=== PATIENT | male | born 1930 | race Caucasian/White ===

== ENCOUNTER 2018-01-11 10:56 | Inpatient (IN) | payer MEDICARE, OTHER ==
[2018-01-11 12:11] VITALS: BMI 28.0
[2018-01-11] MEDS ORDERED: NITROGLYCERIN SL TABS 0.4 MG TAB SUBLINGUAL ONE (12:28)
[2018-01-11 13:06] LABS: HCT 40.6 % (39.0-53.0); HGB 13.2 gm/dL (13.0-17.5); MCH 29.4 pg (25.0-35.0); MCHC 32.5 g/dL (31.0-37.0); MCV 90.4 fL (80.0-100.0); Mean Platelet Volume 7.8; Platelet Count 187 k/uL (150-450); RBC 4.49 m/uL (4.30-5.90); RDW 13.5 % (11.5-15.5); WBC 6.4 k/uL (3.8-10.6)
[2018-01-11 13:12] LABS: INR 2.6 (<1.2); Prothrombin Time 23.7 sec (9.0-12.0)
[2018-01-11 13:14] LABS: Albumin 3.3 g/dL (3.5-5.0); Calcium 8.8 mg/dL (8.4-10.2); Potassium 4.8 mmol/L (3.5-5.1); Total Bilirubin 0.7 mg/dL (0.2-1.3); Total Protein 5.9 g/dL (6.3-8.2)
[2018-01-11 13:22] LABS: Creatine Kinase 92 U/L (55-170)
[2018-01-11] MEDS: SODIUM CHLORIDE 0.9% 1,000 ML IV SCH (13:29)
[2018-01-11 13:35] LABS: Creatine Kinase MB 2.8 ng/mL (0.0-2.4); Troponin I <0.012 ng/mL (0.000-0.034)
--- NOTE | 2018-01-11 14:23 | P.HPIM ---
History of Present Illness H&P Date: 01/11/18 Chief Complaint: Chest pressure and bradycardia This is a 87-year-old male with a known past medical history of atrial fibrillation anticoagulated with Coumadin, hyperlipidemia, hypertension and dementia. Patient went to see Dr. Walton today for his six-month checkup and it that time reported that he had some right sided chest pressure. He has had this off and on for the last couple weeks. EKG completed in the office had shown patient to be bradycardic with a heart rate in the 40s. He does take atenolol 25 mg daily his last dose was last night. Patient does report feeling more fatigued he has been needing to take naps during the day which she does not usually do. Family at bedside also reporting noting some shortness of breath as well as having falls with no loss of consciousness. Patient denies any lightheadedness or dizziness any loss of consciousness. Denies any fever chills or sweats. Denies any cough. Denies any nausea or vomiting bowel movement changes or urinary symptoms. Patient has been admitted to the sixth floor. Cardiology has been consulted. EKG echo and telemetry ordered. Serial cardiac enzymes also ordered. Review of Systems Please refer to HPI otherwise unremarkable Past Medical History Past Medical History: No Reported History, Atrial Fibrillation, Hearing Disorder / Deafness, Memory Impairment, Osteoarthritis (OA) Additional Past Medical History / Comment(s): Left knee replaced History of Any Multi-Drug Resistant Organisms: None Reported Past Surgical History: Appendectomy, Hernia Repair Past Anesthesia/Blood Transfusion Reactions: No Reported Reaction Past Psychological History: No Psychological Hx Reported Smoking Status: Never smoker - Past Family History Father Additional Family Medical History / Comment(s): Parkinson's Mother Family Medical History: Cancer Additional Family Medical History / Comment(s): Lung Cancer Medications and Allergies Home Medications Medication Instructions Recorded Confirmed Type Aspirin 81 mg PO DAILY 01/11/18 01/11/18 History Atenolol 25 mg PO DAILY 01/11/18 01/11/18 History Calcium Carb-Vit D 500Mg-200Un 1 tab PO DAILY 01/11/18 01/11/18 History [Oscal 500+D] Donepezil HCl [Aricept] 5 mg PO DAILY 01/11/18 01/11/18 History Glucosamine/Chondr Malloy A Sod [Osteo 2 tab PO DAILY 01/11/18 01/11/18 History Bi-Flex Caplet] Memantine [Namenda] 5 mg PO DAILY 01/11/18 01/11/18 History Multivit-Min/FA/Lycopen/Lutein 1 tab PO DAILY 01/11/18 01/11/18 History [Centrum Silver Men Tablet] [place]-3 Fatty Acids/Fish Oil [Fish 1 cap PO DAILY 01/11/18 01/11/18 History Oil 1,000 mg Softgel] Simvastatin [Zocor] 10 mg PO HS 01/11/18 01/11/18 History Warfarin [Coumadin] 5 mg PO SUMOWEFRSA 01/11/18 01/11/18 History Warfarin [Coumadin] 7.5 mg PO TUTH 01/11/18 01/11/18 History Allergies Allergy/AdvReac Type Severity Reaction Status Date / Time No Known Allergies Allergy Verified 01/11/18 12:49 Physical Exam Vitals: Vital Signs Temp Pulse Resp BP Pulse Ox 01/11/18 11:54 96.6 F L 59 L 18 151/83 97 Intake and Output 01/10/18 01/11/18 01/11/18 22:59 06:59 14:59 Other: Weight 86 kg Head normocephalic Neck supple Lungs clear to auscultation bilaterally no wheezing or crackles Heart regular rate and rhythm S1-S2, no rub or gallop Abdomen is soft nontender nondistended positive bowel sounds no hepatosplenomegaly Extremities no edema Neuro alert and orientated to 3 Results CBC & Chem 7: 01/11/18 12:44 01/11/18 12:44 Labs: Abnormal Lab Results - Last 24 Hours (Table) 01/11/18 01/11/18 01/11/18 Range/Units 12:44 12:44 12:44 PT 23.7 H (9.0-12.0) sec INR 2.6 H (<1.2) BUN 24 H (9-20) mg/dL CK-MB (CK-2) 2.8 H (0.0-2.4) ng/mL Total Protein 5.9 L (6.3-8.2) g/dL Albumin 3.3 L (3.5-5.0) g/dL Thrombosis Risk Factor Assmnt - Choose All That Apply Each Risk Factor Represents 3 Points: Age 75 years or older Other congenital or acquired thrombophilia - If yes, enter type in comment: No Thrombosis Risk Factor Assessment Total Risk Factor Score: 3 Thrombosis Risk Factor Assessment Level: Moderate Risk Assessment and Plan Assessment: 1. Chest pain with bradycardia: Cardiology will be consulted. Check serial cardiac enzymes. Check EKG. Check echo. Check chest x-ray and BNP level. Atenolol has been placed on hold. 2. History of atrial fibrillation anticoagulated with Coumadin. Check PT/INR. INR 2.6. Will give Coumadin 5 mg tonight instead of 7.5 which is his home dose 3. Hyperlipidemia continue statin 4. Essential hypertension 5. Dementia continue Aricept and Namenda GI prophylaxis Pepcid and DVT prophylaxis Time with Patient: Greater than 30 (Greater than 60% of the total time spent in counseling and coordination of care.I performed an examination of the patient and discussed their management with the physician It Systems Analyst Consultant. I have reviewed the Physician It Systems Analyst Consultant's notes and agree with the documented findings and plan of care)
[2018-01-11] MEDS ORDERED: LORazepam 2 MG/ML INJ IV PRN ×3 (14:25)
[2018-01-11] MEDS ORDERED: THIAMINE 100 MG/ML 2 ML VIAL IM STA (14:29)
--- NOTE | 2018-01-11 15:09 | P.CRDCN ---
History of Present Illness Consult date: 01/11/18 Requesting physician: Chano Walton Consult reason: chest pain, atrial fibrillation Chief complaint: Chest discomfort History of present illness: This is an 87-year-old gentleman with past medical history significant for chronic persistent atrial fibrillation, anticoagulated with Coumadin, hypertension, hyperlipidemia, mild dementia, who went to see Dr. Walton in the office for his 6 month checkup. He had mentioned to him that he has been having this right-sided chest pressure which has been persistent for approximately 2-3 weeks. EKG was performed in the office which revealed atrial fibrillation with a heart rate in the 40s, patient does take atenolol 25 mg daily, patient also had stated to the [employer] each night. He has done this however for several years. This patient is extremely physically active, he bikes regularly distance, however according to the patient and his daughter who are at bedside he has been slowing down compared to his usual. He does complain of intermittent lightheadedness. Prior to admission or at the time of my examination he denies any dizziness or lightheadedness. Still mentions that he has a pressure in the right side of his chest, he states that it is about a 3 -4 on a pain scale, and again has been persistent for 3 weeks. Even when he rides his bike the pain stays the same, does not worsen in intensity. EKG on arrival here showed atrial fibrillation with a slow ventricular response, heart rate in the 40s to 50s. I pressure 150/80, afebrile, 97% on 2 L of oxygen. White blood cell count is normal, hemoglobin 13.2, platelet count 187. INR 2.6. Sodium 139, potassium 4.8, BUN 24, creatinine 1.0. AST ALT are normal. Troponin 0.012. BNP level 1870. Past Medical History Past Medical History: No Reported History, Atrial Fibrillation, Hearing Disorder / Deafness, Memory Impairment, Osteoarthritis (OA) Additional Past Medical History / Comment(s): Left knee replaced History of Any Multi-Drug Resistant Organisms: None Reported Past Surgical History: Appendectomy, Hernia Repair Past Anesthesia/Blood Transfusion Reactions: No Reported Reaction Past Psychological History: No Psychological Hx Reported Smoking Status: Never smoker - Past Family History Father Additional Family Medical History / Comment(s): Parkinson's Mother Family Medical History: Cancer Additional Family Medical History / Comment(s): Lung Cancer Medications and Allergies Home Medications Medication Instructions Recorded Confirmed Type Aspirin 81 mg PO DAILY 01/11/18 01/11/18 History Atenolol 25 mg PO DAILY 01/11/18 01/11/18 History Calcium Carb-Vit D 500Mg-200Un 1 tab PO DAILY 01/11/18 01/11/18 History [Oscal 500+D] Donepezil HCl [Aricept] 5 mg PO DAILY 01/11/18 01/11/18 History Glucosamine/Chondr Malloy A Sod [Osteo 2 tab PO DAILY 01/11/18 01/11/18 History Bi-Flex Caplet] Memantine [Namenda] 5 mg PO DAILY 01/11/18 01/11/18 History Multivit-Min/FA/Lycopen/Lutein 1 tab PO DAILY 01/11/18 01/11/18 History [Centrum Silver Men Tablet] [place]-3 Fatty Acids/Fish Oil [Fish 1 cap PO DAILY 01/11/18 01/11/18 History Oil 1,000 mg Softgel] Simvastatin [Zocor] 10 mg PO HS 01/11/18 01/11/18 History Warfarin [Coumadin] 5 mg PO SUMOWEFRSA 01/11/18 01/11/18 History Warfarin [Coumadin] 7.5 mg PO TUTH 01/11/18 01/11/18 History Allergies Allergy/AdvReac Type Severity Reaction Status Date / Time No Known Allergies Allergy Verified 01/11/18 12:49 Physical Exam Vitals: Vital Signs Temp Pulse Resp BP Pulse Ox 01/11/18 11:54 96.6 F L 59 L 18 151/83 97 Intake and Output 01/11/18 01/11/18 01/11/18 06:59 14:59 22:59 Other: Weight 86 kg PHYSICAL EXAMINATION: GENERAL: 87-year-old gentleman in no acute distress at the time of my examination HEENT: Head is atraumatic, normocephalic. Pupils equal, round. Sclera anicteric. Conjunctiva are clear. Mucous membranes of the mouth are moist. Neck is supple. There is no elevated jugular venous pressure.] bruit is heard. HEART EXAMINATION: Heart S1-S2 irregularly irregular a systolic murmur is heard. CHEST EXAMINATION: Lungs are clear to auscultation and precussion. No chest wall tenderness is noted on palpation or with deep breathing. ABDOMEN: Soft, nontender. Bowel sounds are heard. No organomegaly noted. EXTREMITIES: 2+ peripheral pulses with no evidence of peripheral edema and no calf tenderness noted. NEUROLOGIC patient is awake, alert and oriented ?-3. . Results 01/11/18 12:44 01/11/18 12:44 Cardiac Enzymes 01/11/18 01/11/18 Range/Units 12:44 12:44 AST 24 (17-59) U/L CK-MB (CK-2) 2.8 H (0.0-2.4) ng/mL Troponin I <0.012 (0.000-0.034) ng/mL Coagulation 01/11/18 Range/Units 12:44 PT 23.7 H (9.0-12.0) sec CBC 01/11/18 Range/Units 12:44 WBC 6.4 (3.8-10.6) k/uL RBC 4.49 (4.30-5.90) m/uL Hgb 13.2 (13.0-17.5) gm/dL Hct 40.6 (39.0-53.0) % Plt Count 187 (150-450) k/uL Comprehensive Metabolic Panel 01/11/18 Range/Units 12:44 Sodium 139 (137-145) mmol/L Potassium 4.8 (3.5-5.1) mmol/L Chloride 107 (98-107) mmol/L Carbon Dioxide 25 (22-30) mmol/L BUN 24 H (9-20) mg/dL Creatinine 1.01 (0.66-1.25) mg/dL Glucose 82 (74-99) mg/dL Calcium 8.8 (8.4-10.2) mg/dL AST 24 (17-59) U/L ALT 37 (21-72) U/L Alkaline Phosphatase 50 (38-126) U/L Total Protein 5.9 L (6.3-8.2) g/dL Albumin 3.3 L (3.5-5.0) g/dL Current Medications Generic Name Dose Route Start Last Admin Trade Name Freq PRN Reason Stop Dose Admin Aspirin 81 mg 01/12/18 09:00 Aspirin PO DAILY [facility] Atorvastatin Calcium 10 mg 01/11/18 21:00 Lipitor PO HS [facility] Calcium Carbonate 1 each 01/12/18 09:00 Oscal 500+D PO DAILY [facility] Donepezil HCl 5 mg 01/12/18 09:00 Aricept PO DAILY [facility] Famotidine 20 mg 01/12/18 09:00 Pepcid PO DAILY [facility] Folic Acid 1 mg 01/12/18 12:00 Folic Acid PO DAILY@1200 [facility] Sodium Chloride 1,000 mls @ 50 mls/hr 01/11/18 12:45 Saline 0.9% IV .Q20H [facility] Lorazepam 1 mg 01/11/18 14:25 Ativan IV Q2HR PRN CIWA 8 or 9 Lorazepam 1 mg 01/11/18 14:25 Ativan IV Q1HR PRN CIWA 10 to 15 Lorazepam 2 mg 01/11/18 14:25 Ativan IV 01/13/18 14:25 Q10M PRN CIWA 16 or higher Memantine 5 mg 01/12/18 09:00 Namenda PO DAILY [facility] Multivitamins 1 each 01/12/18 09:00 Theragran PO DAILY [facility] Osteo Bioflex 1 tab 01/12/18 09:00 PO DAILY [facility] Thiamine HCl 100 mg 01/12/18 12:00 Vitamin B-1 PO DAILY@1200 [facility] Warfarin Sodium 5 mg 01/12/18 18:00 Coumadin PO SUTUWEFRSA [facility] Warfarin Sodium 5 mg 01/11/18 18:00 Coumadin PO 01/11/18 18:01 ONCE@1800 ONE Intake and Output 01/11/18 01/11/18 01/11/18 06:59 14:59 22:59 Other: Weight 86 kg Patient Weight 01/12/18 06:59 Weight 86 kg 01/11/18 12:44 01/11/18 12:44 EKG Interpretations (text) EKG shows atrial fibrillation response Assessment and Plan Plan: Assessment and plan #1 chest discomfort, atypical for acute coronary syndrome. Patient describes the pain as a pressure which has been persistent for 2 to three-week duration. Initial troponin negative. EKG shows a atrial fibrillation with a slow ventricular response. #2 hypertension #3 hyperlipidemia #4 chronic persistent atrial fibrillation, on Coumadin for anticoagulation #5 mild dementia Plan We will obtain an echocardiogram with Doppler study. We will also hold the patient's atenolol, check a free T4 and TSH level. I did have a lengthy discussion with the patient and the family regarding the new her anticoagulants , we will check to see if the patient has coverage and if so we will discontinue the Coumadin and initiate Eliquis 2-1/2 mg one tablet by mouth twice a day. We will continue to monitor the patient, if he remains significantly bradycardic and in spite of the fact that he is off of beta bethany, he may at some point require pacemaker. Further recommendations to follow. DNP note has been reviewed, I agree with a documented findings and plan of care. Patient was seen and examined.
--- NOTE | 2018-01-11 17:43 | XR ---
EXAMINATION TYPE: XR chest 2V DATE OF EXAM: 01/11/2018 COMPARISON: NONE HISTORY: Chest pain TECHNIQUE: Frontal and lateral views of the chest are obtained. FINDINGS: There is coarsening of the pulmonary interstitial markings. There is no gross heart failur e. Thoracic aorta is atheromatous. There is no definite pleural effusion. There are chest leads. IMPRESSION: No overt heart failure. Pulmonary fibrotic changes. No pulmonary consolidation.
[2018-01-11] MEDS ORDERED: WARFARIN 7.5 MG TAB PO SCH (18:00)
[2018-01-11] MEDS ORDERED: WARFARIN 5 MG TAB PO ONE (18:00)
[2018-01-11 18:39] LABS: Creatine Kinase 77 U/L (55-170)
[2018-01-11 18:53] LABS: Creatine Kinase MB 2.1 ng/mL (0.0-2.4); Troponin I <0.012 ng/mL (0.000-0.034)
[2018-01-11] MEDS: ATORVASTATIN 10 MG TAB PO SCH (20:55)
[2018-01-12 02:08] LABS: Creatine Kinase 51 U/L (55-170)
[2018-01-12 02:21] LABS: Creatine Kinase MB 1.5 ng/mL (0.0-2.4); Troponin I <0.012 ng/mL (0.000-0.034)
[2018-01-12 06:03] LABS: Basophils # (A) 0.1 k/uL (0-0.2); Basophils % (A) 1 %; Eosinophils # (A) 0.6 k/uL (0-0.7); Eosinophils % (A) 11 %; HCT 41.3 % (39.0-53.0); HGB 12.9 gm/dL (13.0-17.5); Lymphocytes # (A) 1.5 k/uL (1.0-4.8); Lymphocytes % (A) 27 %; MCHC 31.1 g/dL (31.0-37.0); MCV 93.2 fL (80.0-100.0); Mean Platelet Volume 6.7; Monocytes # (A) 0.3 k/uL (0-1.0); Monocytes % (A) 6 %; Neutrophils # (A) 2.8 k/uL (1.3-7.7); Neutrophils % (A) 52 %; Platelet Count 170 k/uL (150-450); RBC 4.44 m/uL (4.30-5.90); RDW 13.5 % (11.5-15.5); WBC 5.4 k/uL (3.8-10.6)
[2018-01-12 06:15] LABS: Albumin 2.9 g/dL (3.5-5.0); Calcium 8.4 mg/dL (8.4-10.2); Potassium 4.4 mmol/L (3.5-5.1); Total Bilirubin 0.6 mg/dL (0.2-1.3); Total Protein 5.4 g/dL (6.3-8.2)
[2018-01-12 06:23] LABS: INR 2.3 (<1.2); Prothrombin Time 20.8 sec (9.0-12.0)
[2018-01-12] MEDS: SODIUM CHLORIDE 0.9% 1,000 ML IV SCH (07:51)
[2018-01-12] MEDS ORDERED: NON-FORMULARY DRUG (Omega-3 Fatty Acids/Fish Oil [Fish Oil 1,000 Mg Softgel] 1 CAP) PO SCH (09:00)
[2018-01-12] MEDS: MEMANTINE 5 MG TAB PO SCH (10:15)
[2018-01-12] MEDS: CALCIUM CARB-VIT D 500MG-200UN 1 EACH TAB PO SCH (10:15)
[2018-01-12] MEDS: FAMOTIDINE 20 MG TAB PO SCH (10:15)
[2018-01-12] MEDS: MULTIVITAMINS, THERA 1 EACH TAB PO SCH (10:16)
[2018-01-12] MEDS: DONEPEZIL 5 MG TAB PO SCH (10:16)
[2018-01-12] MEDS: ASPIRIN 81 MG PO SCH (10:17)
[2018-01-12] MEDS: osteo bioflex PO SCH (10:18)
--- NOTE | 2018-01-12 10:48 | ECHOF ---
Referral Reason:check EF MEASUREMENTS -------- HEIGHT: 175.3 cm WEIGHT: 85.7 kg BP: 151/83 RVIDd: 3.0 cm (< 3.3) IVSd: 1.0 cm (0.6 - 1.1) LVIDd: 3.8 cm (3.9 - 5.3) LVPWd: 1.0 cm (0.6 - 1.1) IVSs: 1.4 cm LVIDs: 2.3 cm LVPWs: 1.4 cm LA Diam: 4.8 cm (2.7 - 3.8) LAESV Index (A-L): 48.32 ml/m Ao Diam: 3.6 cm (2.0 - 3.7) AV Cusp: 1.6 cm (1.5 - 2.6) LA Diam: 4.2 cm (2.7 - 3.8) EPSS: 0.3 cm MV E Antonio: 0.73 m/s MV DecT: 244 ms MV A Antonio: 0.01 m/s MV E/A Ratio: 129.33 RAP: 5.00 mmHg RVSP: 28.73 mmHg MV EF SLOPE: 161.21 mm/s (70 - 150) MV EXCURSION: 2.25 cm (> 18.000) FINDINGS -------- Atrial fibrillation. This was a technically adequate study. The left ventricular size is normal. Left ventricular wall thickness is normal. Overall left vent ricular systolic function is normal with, an EF between 55 - 60 %. The right ventricle is normal in size and function. LA is severely dilated >40 ml/m2 The right atrium is markedly enlarged. Aortic valve is trileaflet and is mildly thickened. There is no evidence of aortic regurgitation. There is no evidence of aortic stenosis. The mitral valve leaflets are mildly thickened. Mild mitral annular calcification present. Mild-t o-moderate mitral regurgitation is present. Moderate tricuspid regurgitation present. Right ventricular systolic pressure is normal at < 35 mmH g. There is no evidence of pulmonary hypertension. The pulmonic valve was not well visualized. The aortic root size is normal. IVC Not well visulized. There is no pericardial effusion. CONCLUSIONS -------- 1. Atrial fibrillation. 2. This was a technically adequate study. 3. The left ventricular size is normal. 4. Left ventricular wall thickness is normal. 5. Overall left ventricular systolic function is normal with, an EF between 55 - 60 %. 6. LA is severely dilated >40 ml/m2 7. The right atrium is markedly enlarged. 8. Aortic valve is trileaflet and is mildly thickened. 9. The mitral valve leaflets are mildly thickened. 10. Mild mitral annular calcification present. 11. [id number] mitral regurgitation is present. 12. Moderate tricuspid regurgitation present. 13. Right ventricular systolic pressure is normal at < 35 mmHg. 14. There is no evidence of pulmonary hypertension. 15. The pulmonic valve was not well visualized. 16. The aortic root size is normal. 17. IVC Not well visulized. 18. There is no pericardial effusion. SUPERVISOR [employer]: Isaiah Emmanuel RDCS
[2018-01-12] MEDS: THIAMINE 100 MG TAB PO SCH (12:20)
[2018-01-12] MEDS: FOLIC ACID 1 MG TAB PO SCH (12:25)
--- NOTE | 2018-01-12 13:13 | P.PN ---
Subjective Progress Note Date: 01/12/18 This is a 87-year-old male with a known past medical history of atrial fibrillation anticoagulated with Coumadin, hyperlipidemia, hypertension and dementia. Patient went to see Dr. Walton today for his six-month checkup and it that time reported that he had some right sided chest pressure. He has had this off and on for the last couple weeks. EKG completed in the office had shown patient to be bradycardic with a heart rate in the 40s. He does take atenolol 25 mg daily his last dose was last night. Patient does report feeling more fatigued he has been needing to take naps during the day which she does not usually do. Family at bedside also reporting noting some shortness of breath as well as having falls with no loss of consciousness. Patient denies any lightheadedness or dizziness any loss of consciousness. Denies any fever chills or sweats. Denies any cough. Denies any nausea or vomiting bowel movement changes or urinary symptoms. Patient has been admitted to the sixth floor. Cardiology has been consulted. EKG echo and telemetry ordered. Serial cardiac enzymes also ordered. 01/12/2018 patient is still having bradycardia. And is now also having cardiac causes. Heart rate of 38. He is remained off of the beta bethany. I discussed with cardiology. Patient may require pacemaker they will be back through to evaluate patient. Also patient will likely be switched over to Eliquis for anticoagulation instead of the Coumadin. Will await cardiology recommendations. Per nursing staff co-pay was around $5. Echo shows an EF of 55-60% left Atrium severely dilated. TSH is normal troponins were negative 3 sets. Patient denies any fatigue dizziness lightheadedness or loss of consciousness. Denies further episodes of chest pain or shortness of breath. Objective - Vital Signs Vital signs: Vital Signs Temp 97.2 F L 01/12/18 07:50 Pulse 67 01/12/18 07:50 Resp 18 01/12/18 07:50 BP 127/90 01/12/18 07:50 Pulse Ox 95 01/12/18 07:50 Intake & Output 01/11/18 01/12/18 01/12/18 18:59 06:59 18:59 Intake Total 175 400 Balance 175 400 Weight 86 kg 86.8 kg Intake: Intake, IV Titration 175 400 Amount Sodium Chloride 0.9% 1, 175 400 000 ml @ 50 mls/hr IV . Q20H [facility] Rx#:[id number] Oral 0 Other: Voiding Method Toilet # Voids 1 1 - Exam Head normocephalic Neck supple Lungs clear to auscultation bilaterally no wheezing or crackles Heart regular rate and rhythm S1-S2, no rub or gallop Abdomen is soft nontender nondistended positive bowel sounds no hepatosplenomegaly Extremities no edema Neuro alert and orientated to 3 - Labs CBC & Chem 7: 01/12/18 05:26 01/12/18 05:26 Labs: Abnormal Lab Results - Last 24 Hours (Table) 01/11/18 01/11/18 01/11/18 Range/Units 12:44 12:44 12:44 Hgb (13.0-17.5) gm/dL PT 23.7 H (9.0-12.0) sec INR 2.6 H (<1.2) Chloride (98-107) mmol/L BUN 24 H (9-20) mg/dL Total Creatine Kinase (55-170) U/L CK-MB (CK-2) 2.8 H (0.0-2.4) ng/mL Total Protein 5.9 L (6.3-8.2) g/dL Albumin 3.3 L (3.5-5.0) g/dL 01/12/18 01/12/18 01/12/18 Range/Units 01:20 05:26 05:26 Hgb 12.9 L (13.0-17.5) gm/dL PT 20.8 H (9.0-12.0) sec INR 2.3 H (<1.2) Chloride (98-107) mmol/L BUN (9-20) mg/dL Total Creatine Kinase 51 L (55-170) U/L CK-MB (CK-2) (0.0-2.4) ng/mL Total Protein (6.3-8.2) g/dL Albumin (3.5-5.0) g/dL 01/12/18 Range/Units 05:26 Hgb (13.0-17.5) gm/dL PT (9.0-12.0) sec INR (<1.2) Chloride 108 H (98-107) mmol/L BUN 21 H (9-20) mg/dL Total Creatine Kinase (55-170) U/L CK-MB (CK-2) (0.0-2.4) ng/mL Total Protein 5.4 L (6.3-8.2) g/dL Albumin 2.9 L (3.5-5.0) g/dL Assessment and Plan Assessment: 1. Chest pain : Troponins negative 3 sets. Acute coronary syndrome ruled out. Patient seen evaluated by cardiology. 2. Bradycardia: The security monitor showing heart rate 38 with cardiac causes. Atenolol remains on hold. TSH level normal. Case discussed with cardiology patient may require pacemaker. We'll await their further recommendations 3. Hyperlipidemia continue statin 4. Essential hypertension 5. Dementia continue Aricept and Namenda 6. Chronic persistent atrial fibrillation currently anticoagulated with Coumadin. Cardiology working on switching patient over to Eliquis 7. Daily alcohol use: Patient not requiring Ativan. Continue with the CIWA protocol with thiamine, multivitamin and folic acid GI prophylaxis Pepcid and DVT prophylaxis I performed an examination of the patient and discussed their management with the physician Director Of Software Development. I have reviewed the Physician Director Of Software Development's notes and agree with the documented findings and plan of care
--- NOTE | 2018-01-12 14:14 | P.PN ---
Subjective Progress Note Date: 01/12/18 This is an 87-year-old gentleman with past medical history significant for chronic persistent atrial fibrillation, anticoagulated with Coumadin, hypertension, hyperlipidemia, mild dementia, who went to see Dr. Walton in the office for his 6 month checkup. He had mentioned to him that he has been having this right-sided chest pressure which has been persistent for approximately 2-3 weeks. EKG was performed in the office which revealed atrial fibrillation with a heart rate in the 40s, patient does take atenolol 25 mg daily, patient also had stated to the [employer] each night. He has done this however for several years. This patient is extremely physically active, he bikes regularly distance, however according to the patient and his daughter who are at bedside he has been slowing down compared to his usual. He does complain of intermittent lightheadedness. Prior to admission or at the time of my examination he denies any dizziness or lightheadedness. Still mentions that he has a pressure in the right side of his chest, he states that it is about a 3 -4 on a pain scale, and again has been persistent for 3 weeks. Even when he rides his bike the pain stays the same, does not worsen in intensity. EKG on arrival here showed atrial fibrillation with a slow ventricular response, heart rate in the 40s to 50s. I pressure 150/80, afebrile, 97% on 2 L of oxygen. White blood cell count is normal, hemoglobin 13.2, platelet count 187. INR 2.6. Sodium 139, potassium 4.8, BUN 24, creatinine 1.0. AST ALT are normal. Troponin 0.012. BNP level 1870. 01/12/2018 Patient was seen and examined this morning, heart rate in the 70s today overall. Denies any dizziness or lightheadedness. He's been up ambulating in the hallway without any difficulty.blood pressure 127/90, heart rate 70, 95% on 2 L of oxygen.White blood cell count 5.4, hemoglobin 12.9, platelet count 170. INR 2.3. Sodium 137, potassium 4.4, chloride 108, CO2 25, BUN 21, creatinine 1.0.TSH normal. Echocardiogram with Doppler study was performed which revealed an ejection fraction of 55-60%, mild to moderate MR moderate tricuspid regurg. Objective - Vital Signs Vital signs: Vital Signs Temp 97.3 F L 01/12/18 12:00 Pulse 57 L 01/12/18 12:00 Resp 18 01/12/18 12:00 BP 126/69 01/12/18 12:00 Pulse Ox 94 L 01/12/18 12:00 Intake & Output 01/11/18 01/12/18 01/12/18 18:59 06:59 18:59 Intake Total 175 400 Balance 175 400 Weight 86 kg 86.8 kg Intake: Intake, IV Titration 175 400 Amount Sodium Chloride 0.9% 1, 175 400 000 ml @ 50 mls/hr IV . Q20H [facility] Rx#:[id number] Oral 0 Other: Voiding Method Toilet # Voids 1 1 - Exam PHYSICAL EXAMINATION: GENERAL: 87-year-old gentleman in no acute distress at the time of my examination HEENT: Head is atraumatic, normocephalic. Pupils equal, round. Sclera anicteric. Conjunctiva are clear. Mucous membranes of the mouth are moist. Neck is supple. There is no elevated jugular venous pressure.] bruit is heard. HEART EXAMINATION: Heart S1-S2 irregularly irregular a systolic murmur is heard. CHEST EXAMINATION: Lungs are clear to auscultation and precussion. No chest wall tenderness is noted on palpation or with deep breathing. ABDOMEN: Soft, nontender. Bowel sounds are heard. No organomegaly noted. EXTREMITIES: 2+ peripheral pulses with no evidence of peripheral edema and no calf tenderness noted. NEUROLOGIC patient is awake, alert and oriented ?-3. - Labs CBC & Chem 7: 01/12/18 05:26 01/12/18 05:26 Labs: Abnormal Lab Results - Last 24 Hours (Table) 01/12/18 01/12/18 01/12/18 Range/Units 01:20 05:26 05:26 Hgb 12.9 L (13.0-17.5) gm/dL PT 20.8 H (9.0-12.0) sec INR 2.3 H (<1.2) Chloride (98-107) mmol/L BUN (9-20) mg/dL Total Creatine Kinase 51 L (55-170) U/L Total Protein (6.3-8.2) g/dL Albumin (3.5-5.0) g/dL 01/12/18 Range/Units 05:26 Hgb (13.0-17.5) gm/dL PT (9.0-12.0) sec INR (<1.2) Chloride 108 H (98-107) mmol/L BUN 21 H (9-20) mg/dL Total Creatine Kinase (55-170) U/L Total Protein 5.4 L (6.3-8.2) g/dL Albumin 2.9 L (3.5-5.0) g/dL Assessment and Plan Plan: Assessment and plan #1 chest discomfort, atypical for acute coronary syndrome. Patient describes the pain as a pressure which has been persistent for 2 to three-week duration. Initial troponin negative. EKG shows a atrial fibrillation with a slow ventricular response. #2 hypertension #3 hyperlipidemia #4 chronic persistent atrial fibrillation, on Coumadin for anticoagulation #5 mild dementia Plan Echocardiogram with Doppler study was performed which revealed normal left ventricular systolic function. Patient was noted to have a 2-1/2 second pause today while sleeping. From cardiology's perspective, he may be able to be discharged home. Dr. Earnestine Watt will follow him up in the office as an outpatient. We will continue to hold his atenolol. Recommend outpatient stress testing. He has also been approved for Eliquis, patient and family wish to change to Eliquis. We will discontinue the Coumadin and start the Eliquis. DNP note has been reviewed, I agree with a documented findings and plan of care. Patient was seen and examined.
[2018-01-12] MEDS ORDERED: WARFARIN 5 MG TAB PO SCH (18:00)
[2018-01-12] MEDS: ATORVASTATIN 10 MG TAB PO SCH (20:15)
[2018-01-13] MEDS: SODIUM CHLORIDE 0.9% 1,000 ML IV SCH (03:06)
[2018-01-13 03:12] VITALS: RESP 16
[2018-01-13 07:47] LABS: Basophils % (A) 1 %; Eosinophils # (A) 0.5 k/uL (0-0.7); Eosinophils % (A) 9 %; HCT 41.4 % (39.0-53.0); HGB 13.3 gm/dL (13.0-17.5); Lymphocytes # (A) 1.3 k/uL (1.0-4.8); Lymphocytes % (A) 22 %; MCH 29.3 pg (25.0-35.0); MCHC 32.1 g/dL (31.0-37.0); MCV 91.4 fL (80.0-100.0); Mean Platelet Volume 7.1; Monocytes # (A) 0.3 k/uL (0-1.0); Monocytes % (A) 6 %; Neutrophils # (A) 3.6 k/uL (1.3-7.7); Neutrophils % (A) 62 %; Platelet Count 171 k/uL (150-450); RBC 4.53 m/uL (4.30-5.90); RDW 13.3 % (11.5-15.5); WBC 5.8 k/uL (3.8-10.6)
[2018-01-13 07:57] LABS: Prothrombin Time 17.9 sec (9.0-12.0)
[2018-01-13 08:05] LABS: Albumin 3.1 g/dL (3.5-5.0); Calcium 8.6 mg/dL (8.4-10.2); Potassium 4.4 mmol/L (3.5-5.1); Total Bilirubin 0.8 mg/dL (0.2-1.3); Total Protein 5.6 g/dL (6.3-8.2)
[2018-01-13 08:27] VITALS: TEMP 97.4
[2018-01-13] MEDS: DONEPEZIL 5 MG TAB PO SCH (08:36)
[2018-01-13] MEDS: osteo bioflex PO SCH (08:36)
[2018-01-13] MEDS: ASPIRIN 81 MG PO SCH (08:36)
[2018-01-13] MEDS: MEMANTINE 5 MG TAB PO SCH (08:36)
[2018-01-13] MEDS: FAMOTIDINE 20 MG TAB PO SCH (08:36)
[2018-01-13] MEDS: CALCIUM CARB-VIT D 500MG-200UN 1 EACH TAB PO SCH (08:36)
[2018-01-13] MEDS: MULTIVITAMINS, THERA 1 EACH TAB PO SCH (08:37)
[2018-01-13] MEDS ORDERED: APIXABAN 2.5 MG TABLET PO SCH (10:30)
--- NOTE | 2018-01-13 10:53 | P.PN ---
Subjective Progress Note Date: 01/13/18 This is an 87-year-old gentleman with past medical history significant for chronic persistent atrial fibrillation, anticoagulated with Coumadin, hypertension, hyperlipidemia, mild dementia, who went to see Dr. Walton in the office for his 6 month checkup. He had mentioned to him that he has been having this right-sided chest pressure which has been persistent for approximately 2-3 weeks. EKG was performed in the office which revealed atrial fibrillation with a heart rate in the 40s, patient does take atenolol 25 mg daily, patient also had stated to the [employer] each night. He has done this however for several years. This patient is extremely physically active, he bikes regularly distance, however according to the patient and his daughter who are at bedside he has been slowing down compared to his usual. He does complain of intermittent lightheadedness. Prior to admission or at the time of my examination he denies any dizziness or lightheadedness. Still mentions that he has a pressure in the right side of his chest, he states that it is about a 3 -4 on a pain scale, and again has been persistent for 3 weeks. Even when he rides his bike the pain stays the same, does not worsen in intensity. EKG on arrival here showed atrial fibrillation with a slow ventricular response, heart rate in the 40s to 50s. I pressure 150/80, afebrile, 97% on 2 L of oxygen. White blood cell count is normal, hemoglobin 13.2, platelet count 187. INR 2.6. Sodium 139, potassium 4.8, BUN 24, creatinine 1.0. AST ALT are normal. Troponin 0.012. BNP level 1870. 01/12/2018 Patient was seen and examined this morning, heart rate in the 70s today overall. Denies any dizziness or lightheadedness. He's been up ambulating in the hallway without any difficulty.blood pressure 127/90, heart rate 70, 95% on 2 L of oxygen.White blood cell count 5.4, hemoglobin 12.9, platelet count 170. INR 2.3. Sodium 137, potassium 4.4, chloride 108, CO2 25, BUN 21, creatinine 1.0.TSH normal. Echocardiogram with Doppler study was performed which revealed an ejection fraction of 55-60%, mild to moderate MR moderate tricuspid regurg. 01/13/2018 Patient was seen and examined this morning, feels well, he's been up ambulating in the hallway most of the morning. He was noted to have one further positive approximately 2 seconds while sleeping. Heart rate up in the 70s with ambulation. From cardiology's perspective, he may be able to be discharged home today. Objective - Vital Signs Vital signs: Vital Signs Temp 97.4 F L 01/13/18 08:10 Pulse 70 01/13/18 08:10 Resp 16 01/13/18 08:10 BP 162/77 01/13/18 08:10 Pulse Ox 97 01/13/18 08:10 Intake & Output 01/12/18 01/13/18 01/13/18 18:59 06:59 18:59 Intake Total 1580 240 Balance 1580 240 Weight 85.3 kg Intake: Intake, IV Titration 800 Amount Sodium Chloride 0.9% 1, 800 000 ml @ 50 mls/hr IV . Q20H [facility] Rx#:[id number] Oral 780 240 Other: Voiding Method Toilet Toilet Urinal Urinal # Voids 2 1 - Exam PHYSICAL EXAMINATION: GENERAL: 87-year-old gentleman in no acute distress at the time of my examination HEENT: Head is atraumatic, normocephalic. Pupils equal, round. Sclera anicteric. Conjunctiva are clear. Mucous membranes of the mouth are moist. Neck is supple. There is no elevated jugular venous pressure.] bruit is heard. HEART EXAMINATION: Heart S1-S2 irregularly irregular a systolic murmur is heard. CHEST EXAMINATION: Lungs are clear to auscultation and precussion. No chest wall tenderness is noted on palpation or with deep breathing. ABDOMEN: Soft, nontender. Bowel sounds are heard. No organomegaly noted. EXTREMITIES: 2+ peripheral pulses with no evidence of peripheral edema and no calf tenderness noted. NEUROLOGIC patient is awake, alert and oriented ?-3. - Labs CBC & Chem 7: 01/13/18 07:17 01/13/18 07:17 Labs: Abnormal Lab Results - Last 24 Hours (Table) 01/13/18 01/13/18 Range/Units 07:17 07:17 PT 17.9 H (9.0-12.0) sec INR 2.0 H (<1.2) BUN 21 H (9-20) mg/dL Total Protein 5.6 L (6.3-8.2) g/dL Albumin 3.1 L (3.5-5.0) g/dL Assessment and Plan Plan: Assessment and plan #1 chest discomfort, atypical for acute coronary syndrome. Patient describes the pain as a pressure which has been persistent for 2 to three-week duration. Initial troponin negative. EKG shows a atrial fibrillation with a slow ventricular response. #2 hypertension #3 hyperlipidemia #4 chronic persistent atrial fibrillation, on Coumadin for anticoagulation #5 mild dementia Plan Echocardiogram with Doppler study was performed which revealed normal left ventricular systolic function. From cardiology's perspective, patient may be able to be discharged home today. We will make him a follow-up appointment to see Dr. TOMÁS Watt in the office post discharge. DNP note has been reviewed, I agree with a documented findings and plan of care. Patient was seen and examined.
[2018-01-13 11:36] VITALS: BP 146/87; PULSE 62
--- NOTE | 2018-01-13 12:15 | P.DS ---
Providers Date of admission: 01/11/18 11:03 Expected date of discharge: 01/13/18 Attending physician: Chano Walton Consults: 01/11/18 12:21 Consult Physician Routine Consulting Provider: Jose R Watt Consult Reason/Comments: chest pain Do you want consulting provider notified?: Yes Placement Type Exists?: Yes Primary care physician: Chano Walton [facility] Course: Diagnoses on discharge: 1. Chest pain : Troponins negative 3 sets. Acute coronary syndrome ruled out. Patient seen evaluated by cardiology. 2. Bradycardia: The [employer]ian bpm developer showing heart rate 38 with cardiac causes. Atenolol remains on hold. TSH level normal. Case discussed with cardiology patient may require pacemaker. We'll await their further recommendations 3. Hyperlipidemia continue statin 4. Essential hypertension 5. Dementia continue Aricept and Namenda 6. Chronic persistent atrial fibrillation currently anticoagulated with Coumadin. Cardiology working on switching patient over to Eliquis 7. Daily alcohol use: Patient not requiring Ativan. Continue with the CIWA protocol with thiamine, multivitamin and folic acid GI prophylaxis Pepcid and DVT prophylaxis Hospital course: This is a 87-year-old male with a known past medical history of atrial fibrillation anticoagulated with Coumadin, hyperlipidemia, hypertension and dementia. Patient went to see Dr. Walton today for his six-month checkup and it that time reported that he had some right sided chest pressure. He has had this off and on for the last couple weeks. EKG completed in the office had shown patient to be bradycardic with a heart rate in the 40s. He does take atenolol 25 mg daily his last dose was last night. Patient does report feeling more fatigued he has been needing to take naps during the day which she does not usually do. Family at bedside also reporting noting some shortness of breath as well as having falls with no loss of consciousness. Patient denies any lightheadedness or dizziness any loss of consciousness. Denies any fever chills or sweats. Denies any cough. Denies any nausea or vomiting bowel movement changes or urinary symptoms. Patient has been admitted to the sixth floor. Cardiology has been consulted. EKG echo and telemetry ordered. Serial cardiac enzymes also ordered. 01/12/2018 patient is still having bradycardia. And is now also having cardiac causes. Heart rate of 38. He is remained off of the beta bethany. I discussed with cardiology. Patient may require pacemaker they will be back through to evaluate patient. Also patient will likely be switched over to Eliquis for anticoagulation instead of the Coumadin. Will await cardiology recommendations. Per nursing staff co-pay was around $5. Echo shows an EF of 55-60% left Atrium severely dilated. TSH is normal troponins were negative 3 sets. Patient denies any fatigue dizziness lightheadedness or loss of consciousness. Denies further episodes of chest pain or shortness of breath. On 01/13/2018 patient is alert and oriented 3, he denies any new episodes of chest pain, heart rate is 70 no new episodes of bradycardia however patient was having episodes of cardiac causes, he had an episode of 2.3 second pause, and yesterday he had 3 second pause, this was reviewed by cardiology, patient was cleared for discharge, plan is to proceed with stress test as outpatient in the next 1-2 weeks per cardiology. Atenolol was discontinued and patient was started on Norvasc 5 mg by mouth daily he was given a prescription, also Coumadin was discontinued and patient was started on a liquid stool 0.5 mg twice daily, he will be followed in our office within 1 week. Plan - Discharge Summary New Discharge Prescriptions: New amLODIPine [Norvasc] 5 mg PO DAILY tab Apixaban [Eliquis] 2.5 mg PO BID tablet Continue Donepezil HCl [Aricept] 5 mg PO DAILY Simvastatin [Zocor] 10 mg PO HS Aspirin 81 mg PO DAILY Calcium Carb-Vit D 500Mg-200Un [Oscal 500+D] 1 tab PO DAILY Multivit-Min/FA/Lycopen/Lutein [Centrum Silver Men Tablet] 1 tab PO DAILY Glucosamine/Chondr Malloy A Sod [Osteo Bi-Flex Caplet] 2 tab PO DAILY Termo-3 Fatty Acids/Fish Oil [Fish Oil 1,000 mg Softgel] 1 cap PO DAILY Memantine [Namenda] 5 mg PO DAILY Discontinued Warfarin [Coumadin] 5 mg PO SUMOWEFRSA Warfarin [Coumadin] 7.5 mg PO TUTH Atenolol 25 mg PO DAILY Discharge Medication List Aspirin 81 mg PO DAILY 01/11/18 [History] Calcium Carb-Vit D 500Mg-200Un [Oscal 500+D] 1 tab PO DAILY 01/11/18 [History] Donepezil HCl [Aricept] 5 mg PO DAILY 01/11/18 [History] Glucosamine/Chondr Malloy A Sod [Osteo Bi-Flex Caplet] 2 tab PO DAILY 01/11/18 [ History] Memantine [Namenda] 5 mg PO DAILY 01/11/18 [History] Multivit-Min/FA/Lycopen/Lutein [Centrum Silver Men Tablet] 1 tab PO DAILY [History] Termo-3 Fatty Acids/Fish Oil [Fish Oil 1,000 mg Softgel] 1 cap PO DAILY [History] Simvastatin [Zocor] 10 mg PO HS 01/11/18 [History] Apixaban [Eliquis] 2.5 mg PO BID tablet 01/13/18 [Rx] amLODIPine [Norvasc] 5 mg PO DAILY tab 01/13/18 [Rx] Follow up Appointment(s)/Referral(s): Jose R Watt MD [STAFF PHYSICIAN] - 01/25/18 10:15 am () Chano Walton MD [Primary Care Provider] - 01/19/18 11:15 am (Monday) Patient Instructions/Handouts: Angina (DC), A-fib (Atrial Fibrillation) (ED), Cardiac Stress Test (DC) Activity/Diet/Wound Care/Special Instructions: pts copay for Eliquis is $5.50
[2018-01-13] MEDS: FOLIC ACID 1 MG TAB PO SCH (12:21)
[2018-01-13] MEDS: THIAMINE 100 MG TAB PO SCH (12:21)
[2018-01-14] MEDS ORDERED: amLODIPine 5 MG TAB PO SCH (09:00)
== END 2018-01-13 13:25 | disposition home or self-care (01) | DRG 310 ==
LOC: 6SEL 11:03
PROVIDERS: ADMIT Internal Medicine; ATTEND Internal Medicine
DX: R00.1 Bradycardia, unspecified (principal); I48.2 Chronic atrial fibrillation; I08.1 Rheumatic disorders of both mitral and tricuspid valves; F03.90 Unspecified dementia, unspecified severity, without behavioral disturbance, psychotic disturbance, mood disturbance, and anxiety; E78.5 Hyperlipidemia, unspecified; M19.91 Primary osteoarthritis, unspecified site; I10 Essential (primary) hypertension; H91.90 Unspecified hearing loss, unspecified ear; Z79.01 Long term (current) use of anticoagulants; Z79.82 Long term (current) use of aspirin; Z79.899 Other long term (current) drug therapy; Z96.652 Presence of left artificial knee joint; Z90.49 Acquired absence of other specified parts of digestive tract; Z72.89 Other problems related to lifestyle; Z82.0 Family history of epilepsy and other diseases of the nervous system; Z80.1 Family history of malignant neoplasm of trachea, bronchus and lung
CPT/HCPCS: 71046; 80053; 82550; 82553; 83880; 84443; 84484; 85025; 85027; 85610; 93306

== ENCOUNTER 2018-04-21 17:00 | Emergency (ER) | payer MEDICARE, OTHER ==
[2018-04-21 17:06] VITALS: RESP 18
--- NOTE | 2018-04-21 17:38 | XR ---
EXAMINATION TYPE: XR knee complete RT DATE OF EXAM: 04/21/2018 COMPARISON: NONE HISTORY: Knee pain TECHNIQUE: 3 views FINDINGS: There is narrowing of the medial joint space. There is soft tissue swelling anterior to the patella. There is vascular calcification. I see no fracture nor dislocation. IMPRESSION: Osteoarthritis. No fracture.
--- NOTE | 2018-04-21 18:13 | CT ---
EXAMINATION TYPE: CT brain bozena benito DATE OF EXAM: 04/21/2018 COMPARISON: None HISTORY: Fall injury CT DLP: 1367.9 mGycm Automated exposure control for dose reduction was used. TECHNIQUE: CT scan of the head and cervical spine are performed without contrast. FINDINGS: There is cerebral cortical atrophy. There is no mass effect nor midline shift and there i s no sign of intracranial hemorrhage. The calvarium is intact. There is mild hypodensity in the periv entricular white matter. Cervical vertebra have normal alignment. There is degenerative disc space From C4 to C7 with spurring of the endplates. Facet joints are intact. There is mild facet arthropath y. The skull base is intact. There is mucosal thickening left maxillary sinus. IMPRESSION: Mild atrophy and chronic small vessel ischemia. No acute intracranial abnormality. Mild spondylotic changes in the cervical spine. No fracture seen.
--- NOTE | 2018-04-21 18:36 | XR ---
EXAMINATION TYPE: XR femur RT DATE OF EXAM: 04/21/2018 COMPARISON: NONE HISTORY: Leg pain TECHNIQUE: 4 views FINDINGS: There is narrowing of the medial joint space. There is spurring of the medial femoral and t ibial condyles. There is vascular calcification. There is knee joint effusion. There is calcification above the patella that could relate to vascular calcification or synovial chondromatosis. The hip simi int is intact. I see no fracture. IMPRESSION: Knee joint effusion. No fracture seen. 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
--- NOTE | 2018-04-21 19:37 | ED ---
General Adult HPI - General Chief complaint: Extremity Injury, Lower Stated complaint: Fall-knee pain Source: patient, family, RN notes reviewed, old records reviewed Mode of arrival: EMS Limitations: no limitations - History of Present Illness Initial comments: 88-year-old male patient with past medical history including atrial fibrillation , on anticoagulants presents to ED after suffering a knee injury while walking down the stairs today. Patient was on the second last day when his right foot slipped forward. Patient reports that he felt as if his knee "buckled slightly " as a bent forward and he felt pain. Patient caught himself on the guardrail and did not fall to the ground. Patient did hit the side of his head on the wall when he grabbed the guard rail. Patient lowered himself toward ground. Patient denies loss of consciousness. Patient denies headache, changes in vision. Patient denies nausea vomiting diarrhea. Patient denies chest pains, shortness of breath. Patient primary complaint is right knee pain, which had resolved upon presenting to the ER. Systemic: Pt denies fatigue, myalgia, fever/chills, rash. Pt denies weakness, night sweats, weight loss. Neuro: Pt denies headache, visual disturbances, syncope or pre-syncope. HEENT: Pt denies ocular discharge or irritation, otalgia, rhinorrhea, pharyngitis or notable lymphadenopathy. Cardiopulmonary: Pt denies chest pain, SOB, heart palpitations, dyspnea on exertion. Abdominal/GI: Pt denies abdominal pain, n/v/d. : Pt denies dysuria, burning w/ urination, frequency/urgency. Denies new onset urinary or bowel incontinence. MSK: Pt denies myalgia, loss of strength or function in extremities. Neuro: Pt denies new onset weakness, paresthesias. - Related Data Home Medications Medication Instructions Recorded Confirmed Aspirin 81 mg PO DAILY 01/11/18 01/11/18 Calcium Carb-Vit D 500Mg-200Un 1 tab PO DAILY 01/11/18 01/11/18 [Oscal 500+D] Donepezil HCl [Aricept] 5 mg PO DAILY 01/11/18 01/11/18 Glucosamine/Chondr Malloy A Sod [Osteo 2 tab PO DAILY 01/11/18 01/11/18 Bi-Flex Caplet] Memantine [Namenda] 5 mg PO DAILY 01/11/18 01/11/18 Multivit-Min/FA/Lycopen/Lutein 1 tab PO DAILY 01/11/18 01/11/18 [Centrum Silver Men Tablet] Keavy-3 Fatty Acids/Fish Oil [Fish 1 cap PO DAILY 01/11/18 01/11/18 Oil 1,000 mg Softgel] Simvastatin [Zocor] 10 mg PO HS 01/11/18 01/11/18 Previous Rx's Medication Instructions Recorded Apixaban [Eliquis] 2.5 mg PO BID tablet 01/13/18 amLODIPine [Norvasc] 5 mg PO DAILY tab 01/13/18 Allergies Allergy/AdvReac Type Severity Reaction Status Date / Time No Known Allergies Allergy Verified 04/21/18 17:06 Review of Systems ROS Statement: Those systems with pertinent positive or pertinent negative responses have been documented in the HPI. ROS Other: All systems not noted in ROS Statement are negative. Past Medical History Past Medical History: No Reported History, Atrial Fibrillation, Hearing Disorder / Deafness, Memory Impairment, Osteoarthritis (OA) Additional Past Medical History / Comment(s): Left knee replaced History of Any Multi-Drug Resistant Organisms: None Reported Past Surgical History: Appendectomy, Hernia Repair Past Anesthesia/Blood Transfusion Reactions: No Reported Reaction Past Psychological History: No Psychological Hx Reported Smoking Status: Never smoker Past Alcohol Use History: Daily - Past Family History Father Additional Family Medical History / Comment(s): Parkinson's Mother Family Medical History: Cancer Additional Family Medical History / Comment(s): Lung Cancer General Exam - General Exam Comments Initial Comments: Constitutional: NAD, AOX3, Pt has pleasant affect. HEENT: NC/AT, trachea midline, neck supple, no lymphadenopathy. Posterior pharynx non erythematous, without exudates. External ears appear normal, without discharge. Mucous membranes moist. Eyes PERRLA, EOM intact. There is no scleral icterus. No pallor noted. Cardiopulmonary: RRR, no murmurs, rubs or gallops, no JVD noted. Lungs CTAB in anterior and posterior roca. No peripheral edema. Abdominal exam: Abdomen soft and non-distended. Abdomen non-tender to palpation in all 4 quadrants. Bowel sounds active in LLQ. No hepatosplenomegaly. No ecchymosis Neuro: CN II-XII intact. No nuchal rigidity. No facial droop, no focal deficit. No cervical spinal tenderness. MSK: No posterior calf tenderness bilaterally, homans sign negative bilaterally. Posterior tibialis, dostalis pedis and radial pulse +2 bilaterally , pulses equal. Sensation intact in upper and lower extremities. Moderate knee effusion noted on right knee. Patient active range of motion of right lower extremity decreased secondary to pain. Patient has full passive range of motion right lower extremity. Patient is able to bear weight with assistance. Patient neurovascularly intact after immobilizer placement. Small contusion noted on right temporal lobe, non-erythematous. No renteria sign, no raccoon eyes. Limitations: no limitations Course Vital Signs 04/21/18 17:02 Temperature 97.8 F Pulse Rate 77 Respiratory 18 Rate Blood Pressure 134/93 O2 Sat by Pulse 95 Oximetry Medical Decision Making - Medical Decision Making 88-year-old male patient severed a knee injury while walking down stairs. Patient also had a minor head trauma. See HPI for full details. Patient did not fall to ground, did not have any loss of consciousness. Patient denies headache, changes in vision. Physical exam displayed a small contusion on his right temporal lobe. Neuro exam was within normal limits. Patient alert and oriented 3. Moderate right knee effusion noted on physical exam. Patient able to range his knee passively with physical exam. Distal pulses intact and equal. CT of head and neck did not display any acute pathology. Plain film of right knee displayed joint effusion, osteoarthritis. Femur plain films displayed knee joint effusion, osteomyelitis. Patient to be discharged with knee immobilizer, patient be nonweightbearing. Patient to be written a prescription for a wheelchair. Patient to follow up with orthopedic referral as soon as possible. Pt to f/u with PCP in 1-2 days. Pt to return to ED if any new signs or symptoms develop. Case discussed with Dr. Erickson. Disposition Clinical Impression: Fall Disposition: HOME SELF-CARE Condition: Good Instructions: Fall Prevention for Older Adults (ED) Additional Instructions: Patient to adhere to previously discussed treatment plan and will take medication(s) as directed. Patient to follow up with PCP in 1-2 days. Patient to return to ED if symptoms do not improve. Is patient prescribed a controlled substance at d/c from ED?: No Referrals: Chano Walton MD [Primary Care Provider] - 1-2 days Trevin Teague PAC [PHYSICIAN [facility]] - 1-2 days Time of Disposition: 19:41
[2018-04-21 19:58] VITALS: BP 142/93; PULSE 72; TEMP 98
== END 2018-04-21 19:56 | disposition home or self-care (01) ==
LOC: EC 17:00
DX: S89.91XA Unspecified injury of right lower leg, initial encounter (principal); S06.2X0A Diffuse traumatic brain injury without loss of consciousness, initial encounter; M17.11 Unilateral primary osteoarthritis, right knee; M86.9 Osteomyelitis, unspecified; I48.91 Unspecified atrial fibrillation; Z96.652 Presence of left artificial knee joint; Z79.82 Long term (current) use of aspirin; Z79.899 Other long term (current) drug therapy; W10.9XXA Fall (on) (from) unspecified stairs and steps, initial encounter; Y93.01 Activity, walking, marching and hiking; Y92.009 Unspecified place in unspecified non-institutional (private) residence as the place of occurrence of the external cause
CPT/HCPCS: 99284; 73552; 73562; 72125; 70450; L1830

== ENCOUNTER 2018-05-16 11:11 | Day surgery (SDC) | payer MEDICARE, OTHER ==
[~2018-05-16 11:11] MED LIST: ACETAMINOPHEN TAB 500 MG TAB PO ONE; HYDROmorphone 0.5 MG/0.5 ML SYRINGE IVP PRN; LACTATED RINGERS 1,000 ML IV SCH; LIDOCAINE 1% 20 ML VIAL (10MG/ML) FOR IV START INTRADERMA PRN; ONDANSETRON 4 MG/2 ML VIAL IVP ONE; Pre Op ABX Message 1 EACH MISC MISCELLANE ONE; TRANEXAMIC ACID 1,000 MG in SODIUM CHLORIDE 0.9% 50 ML IVPB ONE
[2018-05-16] MEDS ORDERED: LIDOCAINE 1% 20 ML VIAL (10MG/ML) FOR IV START INTRADERMA ONE (12:03)
[2018-05-16] MEDS ORDERED: PROPOFOL 10 MG/ML 20 ML VIAL IV ONE (14:13)
[2018-05-16] MEDS ORDERED: SUCCINYLCHOLINE CHLORIDE 100 MG/5 ML SYR IV ONE (14:13)
[2018-05-16] MEDS ORDERED: LIDOCAINE 1% INJ 10MG/ML (20 ML MDV) ONE (14:13)
[2018-05-16] MEDS ORDERED: fentaNYL (PF) 50 MCG/ML 2 ML AMP ONE (14:13)
[2018-05-16] MEDS ORDERED: MIDAZOLAM 2 MG/2 ML VIAL ONE (14:13)
[2018-05-16] MEDS ORDERED: GLYCOPYRROLATE 0.2 MG/ML 2 ML VIAL ONE (14:13)
[2018-05-16] MEDS ORDERED: NEOSTIGMINE 1 MG/ML 10 ML VIAL ONE (14:13)
[2018-05-16] MEDS ORDERED: BUPIVACAINE (PF) 0.5% 30 ML VIAL ONE (14:13)
[2018-05-16] MEDS ORDERED: ROCURONIUM BROMIDE 10 MG/ML 10 ML VIAL IV ONE (14:13)
[2018-05-16] MEDS ORDERED: ceFAZolin 1,000 MG/50 ML BAG (PMX) IVPB ONE (14:20)
[2018-05-16] MEDS ORDERED: ceFAZolin 1,000 MG in SODIUM CHLORIDE 0.9% 1,000 ML IRRIGATION ONE (14:56)
[2018-05-16 16:28] VITALS: TEMP 98
[2018-05-16] MEDS ORDERED: LACTATED RINGERS 1,000 ML IV ONE (16:54)
[2018-05-16] MEDS ORDERED: ROPIVACAINE 5 MG/ML 30 ML VIAL MISCELLANE ONE (17:00)
[2018-05-16] MEDS ORDERED: ROPIVACAINE 1,100 MG, SODIUM CHLORIDE 0.9% 500 ML 330 ML MISCELLANE PRN ×2 (17:47)
--- NOTE | 2018-05-16 17:50 | P.ONQ ---
Anesthesiology Proc Note - PNB - Peripheral Nerve Block Performed Right Adductor Canal Infusion Time Out Performed: Yes Procedure Start Time: 16:58 Indication: Acute Post-Operative Pain, Analgesia Specifically requested for management of pain by DrHiral: Angelo Bobo Sedation Type: Sedate with meaningful contact maintained Preparation: Sterile Prep Position: Supine Catheter Depth at Skin (cm): 7 Catheter: Indwelling Needle Types: Other (see comment) (Pajunk) Needle Size: 100mm (4") Needle Gauge: 18 Technique: Ultrasound Injectate: 0.5% Ropivacaine (see comment for volume) (20cc) Blood Aspirated: No Pain Paresthesia on Injection Noted: No Resistance on Injection: Normal Events: Uneventful and Well Tolerated
[2018-05-16 18:39] VITALS: RESP 18
[2018-05-16] MEDS ORDERED: HYDROcodone/APAP 5-325MG 1 EACH TAB PO ONE (19:02)
[2018-05-16 19:12] VITALS: BP 130/86; PULSE 74
--- NOTE | 2018-05-30 12:34 | P.OP ---
Date of Procedure: 05/16/18 Procedure(s) Performed: PREOPERATIVE DIAGNOSES: 1. Right quad tendon rupture and disruption of the extensor mechanism, right knee POSTOPERATIVE DIAGNOSES: 1. Right quad tendon rupture and disruption of the extensor mechanism, right knee PROCEDURES PERFORMED: 1. Right knee open quad tendon repair, primary ANESTHESIA: General ESTIMATED BLOOD LOSS: Less than 25 cc TOURNIQUET: None EXPERIMENTAL ASSEMBLER: Carmen Fong PA-C (assistance with: Patient positioning, retraction, exposure, hemostasis, fixation, closure, dressing) COMPLICATIONS: None DISPOSITION: To postanesthesia care unit INDICATIONS: Mr. Nice is an 88-year-old male who ruptured his quad tendon during a near fall in which he forcibly flexed his knee. He evidently had very poor pre-injury motion with quad contracture even though he was reportedly quite active. He presents to the operating room today for quad tendon repair. I have explained the details of this surgery thoroughly and also explained the potential risks and complications. These are inclusive of, but not limited to: bleeding, infection, scarring, discomfort, blood vessel and nerve damage, stiffness, weakness, need for further surgery, failure to relieve symptoms, persistence or worsening of problems, , and other risks. Patient is aware of these risks and agrees to proceed with surgery. The consent form has been signed. PROCEDURE: Appropriate consent was obtained from the patient, who was then taken to the operating room and placed in the supine position. General anesthesia was initiated. Positioning was performed with care to make sure that all pressure points were adequately padded. Bear-hugger was used along with leg sequential compression device(s). Prepping and draping was completed in the usual aseptic fashion using Chloraprep. Timeout was called, confirming patient identity, side, procedure, and administration of antibiotics. The patient received intravenous antibiotics prior to incision. Incision was created over the anterior aspect of the knee directly over the prepatellar bursa and quad tendon. Incision was carried carefully down through skin into subcu tissues and to the peritenon. Full thickness subcutaneous flaps were created for exposure of the extensor mechanism and the ruptured quad tendon. The quad tendon had torn from the superior pole of patella in ragged fashion. However, evaluation of the remaining distal stump of the quad tendon showed tissue adequate for a modified Krakw type repair. Minimal debridement of the ragged ends of the quad tendon was performed to not overly shorten the tendon. A modified Krakw-type stitch was then placed using #5 FiberWire suture through the medial and lateral sides of the quad tendon. Tension was held on the sutures after every throw to make sure that the sutures would not give and slipped after repair to the patella. Next, a 3 mm hole was drilled from proximal to distal through the superior aspect of the patella. Care was taken to make sure that the plane of the drill did not dive posteriorly. The needle emerged at the patellar tendon insertion and a second hole was placed parallel to the first in similar fashion. The #5 FiberWire sutures were then brought through the patella using a Guzu suture passer. The patella was carefully held in place by an senior administrative assistant and quad tendon was noted to be well reduced into the superior pole of the patella with the knee in full extension. The sutures were then tied down securely over the inferior aspect of the patella and the knot was buried within the patellar tendon. Once tension was released, it was noted that the quad tendon adequately restored the continuity of the extensor mechanism centrally. On both the medial and lateral sides of the extensor retinaculum, supplemental #2 FiberWire sutures were placed as well as 0 Vicryl sutures to further reinforce the repair. The knee was then gently bent to approximately 45 to assess the strength of the repair. The repair appeared robust without evidence of suture slippage or lengthening of the quad tendon. Further testing past 45 was not performed in order to not over stress the repair. Thorough irrigation of the wound was performed using normal saline. Hemostasis was obtained throughout the case using electrocautery. Sterile dressing was then applied using ABDs pads, Hernandez roll and an Eamon wrap and a secure knee immobilizer splint was applied. The patient tolerated the procedure well and no complications and minimal blood loss. He was subsequently transferred to recovery room in stable condition. Sponge and needle counts are correct.
== END 2018-05-16 20:18 | disposition home or self-care (01) ==
LOC: OR 11:11
PROVIDERS: ATTEND Orthopaedic Surgery
DX: S76.111A Strain of right quadriceps muscle, fascia and tendon, initial encounter (principal); W10.9XXA Fall (on) (from) unspecified stairs and steps, initial encounter; X50.9XXA Other and unspecified overexertion or strenuous movements or postures, initial encounter; M17.11 Unilateral primary osteoarthritis, right knee; E78.5 Hyperlipidemia, unspecified; R00.2 Palpitations; I10 Essential (primary) hypertension; H91.90 Unspecified hearing loss, unspecified ear; Z72.0 Tobacco use; E78.00 Pure hypercholesterolemia, unspecified; I49.5 Sick sinus syndrome; I48.2 Chronic atrial fibrillation; I65.29 Occlusion and stenosis of unspecified carotid artery; F03.90 Unspecified dementia, unspecified severity, without behavioral disturbance, psychotic disturbance, mood disturbance, and anxiety; Z79.82 Long term (current) use of aspirin; Z79.899 Other long term (current) drug therapy; Z79.01 Long term (current) use of anticoagulants
CPT/HCPCS: 27385; C1772; J2250; J2710; J2405; J0690 ×2; J2001; J3010; J2795; J0330; J2704

== ENCOUNTER → 2020-02-20 | Outpatient (CLI) | payer MEDICARE ==
--- NOTE | 2020-02-20 12:20 | BD ---
EXAMINATION TYPE: Axial Bone Density DATE OF EXAM: 02/20/2020 COMPARISON: NONE CLINICAL HISTORY: Known osteoporosis. Height: 67 Weight: 206.6 FRAX RISK QUESTIONS: Alcohol (3 or more units per day): no Family History (Parent hip fracture): no Glucocorticoids (More than 3mos): no (Ex: prednisone, prednisolone, methylprednisolone, dexamethasone, and hydrocortisone). History of Fracture in Adulthood: no Secondary Osteoporosis: 1. Type 1 Diabetes: no 2. Hyperthyroidism: no 3. Menopause before 45: n/a 4. Malnutrition: no 5. Chronic liver disease: no Rheumatoid Arthritis: no Current Tobacco Use: no RISK FACTORS HISTORY OF: Family History of Osteoporosis: no Active: yes Diet low in dairy products/other sources of calcium: no Lost more than 2 inches in height since high school: yes MEDICATIONS: Additional History: EXAM MEASUREMENTS: Bone mineral densitometry was performed using the [employer] System. Bone mineral density as measured about the Lumbar spine is: ----- L1-L4(G/cm2): 1.140 T Score Values are as follows: ----- L2: -1.3 ----- L3: 0.1 ----- L4: 0.7 ----- L1-L4: -0.3 Bone mineral density : BASELINE Bone mineral density about the R hip (g/cm2): 0.971 Bone mineral density about the L hip (g/cm2): 1.029 T Score values are as follows: -----R Neck: -0.5 -----L Neck: -0.1 -----R Total: 0.3 -----L Total: 0.9 Bone mineral density : BASELINE IMPRESSION: Osteopenia (T Score between -2.5 and -1) at 2 consecutive levels in the upper lumbar spine. There is slightly increased risk of fracture and the patient may be considered for treatment. Re-Screen 2-5 years. NOTE: T-SCORE=SD OF THE YOUNG ADULT MEAN.
== END | disposition home or self-care (01) ==
LOC: RADBDWWP 09:57
PROVIDERS: ATTEND Internal Medicine
DX: M85.88 Other specified disorders of bone density and structure, other site (principal)
CPT/HCPCS: 77080

== ENCOUNTER 2021-03-23 19:06 | Observation (INO) | payer MEDICARE ==
[2021-03-23] MEDS ORDERED: SODIUM CHLORIDE 0.9% 500 ML 500 ML IV STA (20:25)
[2021-03-23 20:44] LABS: Basophils % (A) 1 %; Eosinophils # (A) 0.6 k/uL (0-0.7); Eosinophils % (A) 8 %; HCT 44.2 % (39.0-53.0); HGB 14.7 gm/dL (13.0-17.5); Lymphocytes # (A) 1.6 k/uL (1.0-4.8); Lymphocytes % (A) 20 %; MCHC 33.2 g/dL (31.0-37.0); MCV 90.2 fL (80.0-100.0); Mean Platelet Volume 7.6; Monocytes # (A) 0.4 k/uL (0-1.0); Monocytes % (A) 6 %; Neutrophils # (A) 4.9 k/uL (1.3-7.7); Neutrophils % (A) 63 %; Platelet Count 215 k/uL (150-450); RBC 4.89 m/uL (4.30-5.90); WBC 7.8 k/uL (3.8-10.6)
[2021-03-23 20:59] LABS: Albumin 3.5 g/dL (3.5-5.0); Magnesium 1.8 mg/dL (1.6-2.3); Total Bilirubin 0.6 mg/dL (0.2-1.3); Total Protein 6.3 g/dL (6.3-8.2)
[2021-03-23 21:08] LABS: Potassium 4.1 mmol/L (3.5-5.1)
--- NOTE | 2021-03-23 21:10 | CT ---
EXAMINATION TYPE: CT brain wo con DATE OF EXAM: 03/23/2021 COMPARISON: 04/21/2018 HISTORY: snycope CT DLP: 1178.4 mGycm Automated exposure control for dose reduction was used. There is cerebral cortical atrophy. There is patchy hypodensity in the periventricular white matter. There is no mass effect nor midline shift. There is no sign of intracranial hemorrhage. Calvarium is intact. There is normal aeration of the mastoid sinuses. IMPRESSION: Cerebral atrophy and chronic small vessel ischemia. No acute intracranial abnormality. No adverse rhiannon nge compared to old exam. There is clearing of the maxillary left side sinusitis compared to old exam .
[2021-03-23 21:11] LABS: Partial Thromboplastin Time 21.7 sec (22.0-30.0); Prothrombin Time 10.8 sec (9.0-12.0)
--- NOTE | 2021-03-23 21:13 | XR ---
EXAMINATION TYPE: XR chest 2V DATE OF EXAM: 03/23/2021 COMPARISON: 01/11/2018 HISTORY: Syncope TECHNIQUE: FINDINGS: There is no heart failure nor confluent pneumonic infiltrate. There is some mild atelectasi s left lung base. There is coarsening of the interstitial markings. There are chest leads. Thoracic a preston is atheromatous. IMPRESSION: There is some atelectasis and linear infiltrate left lung base. This appears increased co mpared to old exam. No heart failure. Mild pulmonary fibrosis.
[2021-03-23 22:47] LABS: Appearance,Urine Clear (Clear); Bilirubin,Urine Negative (Negative); Blood,Urine Negative (Negative); Color,Urine Yellow; Glucose,Urine (UA) Negative (Negative); Ketones,Urine Negative (Negative); Leukocyte Esterase,Urine Negative (Negative); Nitrite,Urine Negative (Negative); Protein,Urine Negative (Negative); Specific Gravity,Urine 1.015 (1.001-1.035); Urobilinogen,Urine <2.0 mg/dL (<2.0)
--- NOTE | 2021-03-23 23:37 | ED ---
Dizziness HPI - General Chief Complaint: Syncope Stated Complaint: Syncope Time Seen by Provider: 03/23/21 19:20 Source: patient, EMS Mode of arrival: EMS Limitations: no limitations - History of Present Illness Initial Comments: 89-year-old male patient presents to the emergency department today for evaluation after having a syncopal episode at home. Daughter states he was sitting at the table having a [place] when he suddenly stood up and clutched his abdomen. States she made him sit back down and then he proceeded to have a syncopal event which lasted just a few seconds. This during the episode he did have some snoring slow respirations. States that he came to shortly after and he stated he felt fine and did not remember the episode. They called an ambulance and he was brought in for further evaluation. Patient is currently reporting feeling fine. Does not recall the episode however he does have history of dementia. Denies any current headache, blurred vision, double vision. Denies any numbness, tingling, weakness to the extremities. Denies any current abdominal pain. Denies nausea or vomiting. Denies any recent diarrhea. They deny any fever or chills or concerning for COVID-19. Patient did have a fall outside last Monday where he fell flat on his back. States he did have some right ankle pain and swelling with this. He does take Eliquis for history of A. fib. - Related Data Home Medications Medication Instructions Recorded Confirmed Aspirin 81 mg PO DAILY 01/11/18 03/23/21 Calcium Carb-Vit D 500Mg-5Mcg 1 tab PO DAILY 01/11/18 03/23/21 [Oscal 500+D 5 Mcg (200 Iu)] Donepezil HCl [Aricept] 5 mg PO HS 01/11/18 03/23/21 Glucosamine/Chondr Malloy A Sod [Osteo 2 tab PO DAILY 01/11/18 03/23/21 Bi-Flex Caplet] Multivit-Min/FA/Lycopen/Lutein 1 tab PO DAILY 01/11/18 03/23/21 [Centrum Silver Men Tablet] [place]-3 Fatty Acids/Fish Oil [Fish 2 cap PO DAILY 01/11/18 03/23/21 Oil 1,000 mg Softgel] Simvastatin [Zocor] 10 mg PO HS 01/11/18 03/23/21 amLODIPine [Norvasc] 5 mg PO HS 05/15/18 03/23/21 Memantine [Namenda] 10 mg PO BID 03/23/21 03/23/21 Vitamin E 400 unit PO DAILY 03/23/21 03/23/21 Previous Rx's Medication Instructions Recorded Apixaban [Eliquis] 2.5 mg PO BID tablet 01/13/18 Allergies Allergy/AdvReac Type Severity Reaction Status Date / Time No Known Allergies Allergy Verified 03/23/21 22:25 Review of Systems ROS Statement: Those systems with pertinent positive or pertinent negative responses have been documented in the HPI. ROS Other: All systems not noted in ROS Statement are negative. Past Medical History Past Medical History: Atrial Fibrillation, Hearing Disorder / Deafness, Memory Impairment, Osteoarthritis (OA) Additional Past Medical History / Comment(s): Left knee replaced History of Any Multi-Drug Resistant Organisms: None Reported Past Surgical History: Appendectomy, Hernia Repair Past Anesthesia/Blood Transfusion Reactions: No Reported Reaction Past Psychological History: No Psychological Hx Reported Smoking Status: Never smoker Past Alcohol Use History: Daily Past Drug Use History: None Reported - Past Family History Father Additional Family Medical History / Comment(s): Parkinson's Mother Family Medical History: Cancer Additional Family Medical History / Comment(s): Lung Cancer General Exam Limitations: no limitations General appearance: alert, in no apparent distress, other (This is a well- developed, well-nourished adult male patient in no acute distress.) Head exam: Present: atraumatic, normocephalic, normal inspection Eye exam: Present: normal appearance, PERRL, EOMI. Absent: scleral icterus, conjunctival injection, nystagmus, periorbital swelling ENT exam: Present: normal exam, normal oropharynx, mucous membranes moist Respiratory exam: Present: normal lung sounds bilaterally. Absent: respiratory distress, wheezes, rales, rhonchi, stridor Cardiovascular Exam: Present: regular rate, normal rhythm, normal heart sounds. Absent: systolic murmur, diastolic murmur, rubs, gallop, clicks GI/Abdominal exam: Present: soft, normal bowel sounds. Absent: distended, tenderness, guarding, rebound, rigid Neurological exam: Present: alert, CN II-XII intact. Absent: oriented X3 (Oriented 2) Psychiatric exam: Present: normal affect, normal mood Skin exam: Present: warm, dry, intact, normal color. Absent: rash Course Vital Signs 03/23/21 03/23/21 03/23/21 19:52 21:00 22:25 Temperature 97.8 F Pulse Rate 74 71 79 Respiratory 20 20 20 Rate Blood Pressure 98/64 123/90 143/90 O2 Sat by Pulse 94 L 94 L 96 Oximetry 03/24/21 00:06 Temperature Pulse Rate 75 Respiratory 20 Rate Blood Pressure 137/77 O2 Sat by Pulse 94 L Oximetry Medical Decision Making - Medical Decision Making 89-year-old male patient presents to the emergency department today for evaluation after having a syncopal episode. Physical examination was unremarkable. He is neurologically intact with no focal deficits. Labs reviewed and are unremarkable. Chest x-ray negative. CT brain negative. My attending Dr. Coker was in to perform bedside FAST exam. There is no evidence for any abdominal bleeding. EKG was unremarkable. He'll be admitted to the hospital for observation. Patient family are agreeable with this plan. Case discussed with my attending Dr. Coker. - Lab Data Result diagrams: 03/23/21 20:27 03/23/21 20:27 Lab Results 03/23/21 03/23/21 03/23/21 Range/Units 20:27 20:27 20:27 WBC 7.8 (3.8-10.6) k/uL RBC 4.89 (4.30-5.90) m/uL Hgb 14.7 (13.0-17.5) gm/dL Hct 44.2 (39.0-53.0) % MCV 90.2 (80.0-100.0) fL MCH 30.0 (25.0-35.0) pg MCHC 33.2 (31.0-37.0) g/dL RDW 13.0 (11.5-15.5) % Plt Count 215 (150-450) k/uL MPV 7.6 Neutrophils % 63 % Lymphocytes % 20 % Monocytes % 6 % Eosinophils % 8 % Basophils % 1 % Neutrophils # 4.9 (1.3-7.7) k/uL Lymphocytes # 1.6 (1.0-4.8) k/uL Monocytes # 0.4 (0-1.0) k/uL Eosinophils # 0.6 (0-0.7) k/uL Basophils # 0.0 (0-0.2) k/uL PT 10.8 (9.0-12.0) sec INR 1.0 (<1.2) APTT 21.7 L (22.0-30.0) sec D-Dimer 0.79 H (<0.60) mg/L FEU Sodium 136 L (137-145) mmol/L Potassium 4.1 (3.5-5.1) mmol/L Chloride 105 (98-107) mmol/L Carbon Dioxide 22 (22-30) mmol/L Anion Gap 9 mmol/L BUN 17 (9-20) mg/dL Creatinine 0.95 (0.66-1.25) mg/dL Est GFR (CKD-EPI)AfAm 82 (>60 ml/min/1.73 sqM) Est GFR (CKD-EPI)NonAf 71 (>60 ml/min/1.73 sqM) Glucose 122 H (74-99) mg/dL Calcium 9.0 (8.4-10.2) mg/dL Magnesium 1.8 (1.6-2.3) mg/dL Total Bilirubin 0.6 (0.2-1.3) mg/dL AST 36 (17-59) U/L ALT 19 (4-49) U/L Alkaline Phosphatase 60 (38-126) U/L Troponin I (0.000-0.034) ng/mL Total Protein 6.3 (6.3-8.2) g/dL Albumin 3.5 (3.5-5.0) g/dL Urine Color Urine Appearance (Clear) Urine pH (5.0-8.0) Ur Specific [place] (1.001-1.035) Urine Protein (Negative) Urine Glucose (UA) (Negative) Urine Ketones (Negative) Urine Blood (Negative) Urine Nitrite (Negative) Urine Bilirubin (Negative) Urine Urobilinogen (<2.0) mg/dL Ur Leukocyte Esterase (Negative) 03/23/21 03/23/21 Range/Units 20:27 22:25 WBC (3.8-10.6) k/uL RBC (4.30-5.90) m/uL Hgb (13.0-17.5) gm/dL Hct (39.0-53.0) % MCV (80.0-100.0) fL MCH (25.0-35.0) pg MCHC (31.0-37.0) g/dL RDW (11.5-15.5) % Plt Count (150-450) k/uL MPV Neutrophils % % Lymphocytes % % Monocytes % % Eosinophils % % Basophils % % Neutrophils # (1.3-7.7) k/uL Lymphocytes # (1.0-4.8) k/uL Monocytes # (0-1.0) k/uL Eosinophils # (0-0.7) k/uL Basophils # (0-0.2) k/uL PT (9.0-12.0) sec INR (<1.2) APTT (22.0-30.0) sec D-Dimer (<0.60) mg/L FEU Sodium (137-145) mmol/L Potassium (3.5-5.1) mmol/L Chloride (98-107) mmol/L Carbon Dioxide (22-30) mmol/L Anion Gap mmol/L BUN (9-20) mg/dL Creatinine (0.66-1.25) mg/dL Est GFR (CKD-EPI)AfAm (>60 ml/min/1.73 sqM) Est GFR (CKD-EPI)NonAf (>60 ml/min/1.73 sqM) Glucose (74-99) mg/dL Calcium (8.4-10.2) mg/dL Magnesium (1.6-2.3) mg/dL Total Bilirubin (0.2-1.3) mg/dL AST (17-59) U/L ALT (4-49) U/L Alkaline Phosphatase (38-126) U/L Troponin I <0.012 (0.000-0.034) ng/mL Total Protein (6.3-8.2) g/dL Albumin (3.5-5.0) g/dL Urine Color Yellow Urine Appearance Clear (Clear) Urine pH 5.0 (5.0-8.0) Ur Specific [place] 1.015 (1.001-1.035) Urine Protein Negative (Negative) Urine Glucose (UA) Negative (Negative) Urine Ketones Negative (Negative) Urine Blood Negative (Negative) Urine Nitrite Negative (Negative) Urine Bilirubin Negative (Negative) Urine Urobilinogen <2.0 (<2.0) mg/dL Ur Leukocyte Esterase Negative (Negative) - Radiology Data Radiology results: report reviewed, image reviewed X-ray of the chest are obtained. Report reviewed in its entirety. Impression by Dr. Squires shows some atelectasis some linear infiltrate left lung base. This appears increased compared to old exam. No heart failure. Mild pulmonary fibrosis. CT brain without contrast was obtained. Report reviewed in its entirety. Impression by Dr. Squires shows cerebral atrophy and chronic small vessel ischemia. No acute intracranial abnormality. No adverse change compared to old exam. There is clearing of the maxillary left-sided sinusitis compared to old exam. Disposition Clinical Impression: Syncope Disposition: ADMITTED IP TO THIS HOSP Condition: Serious Is patient prescribed a controlled substance at d/c from ED?: No Decision to Admit Reason: Admit from EC Decision Date: 03/23/21 Decision Time: 23:42
[2021-03-23] MEDS ORDERED: NALOXONE 0.4 MG/ML 1 ML VIAL IV PRN (23:41)
[2021-03-24] MEDS ORDERED: DONEPEZIL 5 MG TAB PO SCH (00:30)
[2021-03-24] MEDS ORDERED: amLODIPine 5 MG TAB PO SCH (00:30)
[2021-03-24] MEDS ORDERED: ATORVASTATIN 10 MG TAB PO SCH (00:30)
[2021-03-24] MEDS: APIXABAN 2.5 MG TABLET PO SCH ×2 (01:56→09:54)
[2021-03-24] MEDS: MEMANTINE 10 MG TAB PO SCH ×2 (01:56→09:54)
[2021-03-24 05:18] VITALS: PULSE 87
[2021-03-24] MEDS ORDERED: VITAMIN E (DL,TOCOPHERYL ACET) 400 UNIT (180 MG) CAP PO SCH (09:00)
[2021-03-24] MEDS ORDERED: ASPIRIN 81 MG PO SCH (09:00)
[2021-03-24] MEDS ORDERED: NON FORMULARY DRUG (Omega-3 Fatty Acids/Fish Oil [Fish Oil 1,000 Mg Softgel] 1 EACH Capsul PO SCH (09:00)
[2021-03-24] MEDS ORDERED: NON FORMULARY DRUG (Glucosamine/Chondr Su A Sod [Osteo Bi-Flex Caplet] 1 EACH Tablet) PO SCH (09:00)
[2021-03-24] MEDS ORDERED: VIT A,C & E-LUTEIN-MINERALS 1 EACH TAB PO SCH (09:00)
[2021-03-24] MEDS: CALCIUM CARB-VIT D 500 MG-5 MCG TAB PO SCH ×2 (09:54→09:55)
--- NOTE | 2021-03-24 09:57 | P.CRDCN ---
History of Present Illness History of present illness: HISTORY OF PRESENTING ILLNESS This is a pleasant 89-year-old who follows in the office with Dr Watt. Patient has a history of chronic atrial fibrillation, hypertension, mild dementia who p resents secondary to episode of syncope. Patient had been working out in the yard earlier in the day however was standing up in his living room and had been feeling fine. His daughter witnessed the event and states he initially was sitting in a chair and then complained of some epigastric pressure and stated she needed to get up and walk around. He apparently stood up and had been standing for a 30-60 seconds and then started having a glazed look on his face and then fell down with apparent loss of consciousness. Daughter called EMS and within a few minutes patient came back to normal. He denies any similar episodes. He denies feeling lightheaded. He does have some issues with mild de mentia however cannot really recall the specifics of that event. He did have issues in 2017 with bradycardia while on a bethany and this was discontinued and for the most part his atrial fibrillation appears well controlled. He denies any further abdominal pain, no chest pain, no shortness breath and feels back to his normal self. He is tolerating the Eliquis well. He does take Norvasc and initial blood pressure 98/64 and states normally his blood pressures in the 120s to 130s over 80s. Initial EKG shows atrial fibrillation with rate of 69 bpm with T-wave inversions in lead 3. Keep brain showed no acute process and chronic small vessel ischemia. Chest x-ray showed some atelectasis of the left lung base. REVIEW OF SYSTEMS At the time of my exam: CONSTITUTIONAL: Denies fever or chills. CARDIOVASCULAR: Denies chest pain, shortness of breath, orthopnea, PND or palpitations. RESPIRATORY: Denies cough. GASTROINTESTINAL: Denies abdominal pain, diarrhea, constipation, nausea or vomiting. MUSCULOSKELETAL: Denies myalgias. NEUROLOGIC: Denies numbness, tingling or weakness. ENDOCRINE: Denies fatigue, weight change, polydipsia or polyurina. GENITOURINARY: Denies burning, hematuria or urgency with micturation. HEMATOLOGIC: Denies history of anemia or bleeding. PHYSICAL EXAMINATION Vital signs reviewed. CONSTITUTIONAL: No apparent distress. HEENT: Head is normocephalic. Pupils are equal, round. Sclerae anicteric. Mucous membranes of the mouth are moist. No JVD. No carotid bruit. CHEST EXAMINATION: Lungs are clear to auscultation. No chest wall tenderness is noted on palpation or with deep breathing. HEART EXAMINATION:Irregular rate and rhythm. S1, S2 heard. No murmurs, gallops or rub. ABDOMEN: Soft, nontender. Positive bowel sounds. EXTREMITIES: 2+ peripheral pulses, no lower extremity edema and no calf tenderness. NEUROLOGIC EXAMINATION: Patient is awake, alert and oriented x3. ASSESSMENT 1. Syncope, may be vasovagal with some GI/epigastric discomfort prior to episode. 2. Chronic atrial fibrillation 3. History of hypertension, borderline blood pressures in the hospital 4. Mild dementia 5. Epigastric pressure, does not appear consistent with angina PLAN Patient's episode was preceded by some epigastric pressure which does not appear consistent with any angina and appears more GI related. Syncope may have been related to a vasovagal episode from this however blood pressure noted to be borderline 98/62 on presentation and normally very well controlled. We will stop his amlodipine and allow for mild permissive hypertension if this can prevent syncopal episodes in the future. Additionally with history of A. fib and prior bradycardia on beta bethany and we will rule out tachy or bradyarrhythmias with out patient 2 week event monitor. Check 2D echo and if unrevealing patient may be discharged from a cardiology standpoint with followup with Dr Watt in 1-2 weeks. Past Medical History Past Medical History: Atrial Fibrillation, Hearing Disorder / Deafness, Memory Impairment, Osteoarthritis (OA) Additional Past Medical History / Comment(s): Left knee replaced History of Any Multi-Drug Resistant Organisms: None Reported Past Surgical History: Appendectomy, Hernia Repair Past Anesthesia/Blood Transfusion Reactions: No Reported Reaction Past Psychological History: No Psychological Hx Reported Smoking Status: Never smoker Past Alcohol Use History: Daily Past Drug Use History: None Reported - Past Family History Father Additional Family Medical History / Comment(s): Parkinson's Mother Family Medical History: Cancer Additional Family Medical History / Comment(s): Lung Cancer Medications and Allergies Home Medications Medication Instructions Recorded Confirmed Type Aspirin 81 mg PO DAILY 01/11/18 03/23/21 History Calcium Carb-Vit D 500Mg-5Mcg 1 tab PO DAILY 01/11/18 03/23/21 History [Oscal 500+D 5 Mcg (200 Iu)] Donepezil HCl [Aricept] 5 mg PO HS 01/11/18 03/23/21 History Glucosamine/Chondr Malloy A Sod [Osteo 2 tab PO DAILY 01/11/18 03/23/21 History Bi-Flex Caplet] Multivit-Min/FA/Lycopen/Lutein 1 tab PO DAILY 01/11/18 03/23/21 History [Centrum Silver Men Tablet] [place]-3 Fatty Acids/Fish Oil [Fish 2 cap PO DAILY 01/11/18 03/23/21 History Oil 1,000 mg Softgel] Simvastatin [Zocor] 10 mg PO HS 01/11/18 03/23/21 History Apixaban [Eliquis] 2.5 mg PO BID tablet 01/13/18 03/23/21 Rx amLODIPine [Norvasc] 5 mg PO HS 05/15/18 03/23/21 History Memantine [Namenda] 10 mg PO BID 03/23/21 03/23/21 History Vitamin E 400 unit PO DAILY 03/23/21 03/23/21 History Allergies Allergy/AdvReac Type Severity Reaction Status Date / Time No Known Allergies Allergy Verified 03/23/21 22:25 Physical Exam Vitals: Vital Signs Temp Pulse Resp BP Pulse Ox 03/24/21 05:00 87 19 124/68 96 03/24/21 01:57 98.4 F 88 16 136/78 95 03/24/21 00:06 75 20 137/77 94 L 03/23/21 22:25 79 20 143/90 96 03/23/21 21:00 71 20 123/90 94 L 03/23/21 19:52 97.8 F 74 20 98/64 94 L Intake and Output 03/23/21 03/24/21 03/24/21 22:59 06:59 14:59 Other: Weight 88.451 kg Results 03/23/21 20:27 03/23/21 20:27 Cardiac Enzymes 03/23/21 03/23/21 Range/Units 20:27 20:27 AST 36 (17-59) U/L Troponin I <0.012 (0.000-0.034) ng/mL Coagulation 03/23/21 Range/Units 20:27 PT 10.8 (9.0-12.0) sec APTT 21.7 L (22.0-30.0) sec CBC 03/23/21 Range/Units 20:27 WBC 7.8 (3.8-10.6) k/uL RBC 4.89 (4.30-5.90) m/uL Hgb 14.7 (13.0-17.5) gm/dL Hct 44.2 (39.0-53.0) % Plt Count 215 (150-450) k/uL Comprehensive Metabolic Panel 03/23/21 Range/Units 20:27 Sodium 136 L (137-145) mmol/L Potassium 4.1 (3.5-5.1) mmol/L Chloride 105 (98-107) mmol/L Carbon Dioxide 22 (22-30) mmol/L BUN 17 (9-20) mg/dL Creatinine 0.95 (0.66-1.25) mg/dL Glucose 122 H (74-99) mg/dL Calcium 9.0 (8.4-10.2) mg/dL AST 36 (17-59) U/L ALT 19 (4-49) U/L Alkaline Phosphatase 60 (38-126) U/L Total Protein 6.3 (6.3-8.2) g/dL Albumin 3.5 (3.5-5.0) g/dL Current Medications Generic Name Dose Route Start Last Admin Trade Name Fabianq PRN Reason Stop Dose Admin Amlodipine Besylate 5 mg 03/24/21 00:30 03/24/21 01:56 Amlodipine 5 Mg Tab PO 5 mg HS LIA Administration Apixaban 2.5 mg 03/24/21 00:30 03/24/21 01:56 Apixaban 2.5 Mg Tablet PO 2.5 mg BID LIA Administration Protocol Aspirin 81 mg 03/24/21 09:00 Aspirin 81 Mg PO DAILY LIA Atorvastatin Calcium 10 mg 03/24/21 00:30 03/24/21 01:56 Atorvastatin 10 Mg Tab PO 10 mg HS LIA Administration Calcium Carbonate 1 each 03/24/21 09:00 Calcium Carb-Vit D 500 Mg-5 Mcg Tab PO DAILY LIA Donepezil HCl 5 mg 03/24/21 00:30 03/24/21 02:31 Donepezil 5 Mg Tab PO 5 mg HS LIA Administration Memantine 10 mg 03/24/21 00:30 03/24/21 01:56 Memantine 10 Mg Tab PO 10 mg BID LIA Administration Multivitamins/Minerals 1 each 03/24/21 09:00 Vit A,C & O-Voiwan-Wpkynjso 1 Each Tab PO DAILY LIA Naloxone HCl 0.2 mg 03/23/21 23:41 Naloxone 0.4 Mg/Ml 1 Ml Vial IV Q2M PRN Opioid Reversal Vitamin E 400 unit 03/24/21 09:00 Vitamin E (Dl,Tocopheryl Acet) 400 Unit (180 Mg) Cap PO DAILY LIA Intake and Output 03/23/21 03/24/21 03/24/21 22:59 06:59 14:59 Other: Weight 88.451 kg 03/23/21 20:27 03/23/21 20:27
[2021-03-24 10:15] VITALS: RESP 18
[2021-03-24 10:37] VITALS: BP 140/93; TEMP 97.7
--- NOTE | 2021-03-24 11:55 | ECHOF ---
Referral Reason:re: syncope MEASUREMENTS -------- HEIGHT: 177.8 cm WEIGHT: 88.5 kg BP: 124/68 RVIDd: 3.9 cm (< 3.3) IVSd: 1.3 cm (0.6 - 1.1) LVIDd: 5.1 cm (3.9 - 5.3) LVPWd: 1.3 cm (0.6 - 1.1) IVSs: 1.9 cm LVIDs: 3.0 cm LVPWs: 1.9 cm LA Diam: 5.1 cm (2.7 - 3.8) LAESV Index (A-L): 65.46 ml/m Ao Diam: 3.6 cm (2.0 - 3.7) AV Cusp: 2.1 cm (1.5 - 2.6) MV EXCURSION: 20.130 mm (> 18.000) MV EF SLOPE: 101 mm/s (70 - 150) EPSS: 0.5 cm RAP: 5.00 mmHg RVSP: 31.23 mmHg TAPSE: 14.74 mm FINDINGS -------- Atrial fibrillation. This was a technically adequate study. The left ventricular size is normal. There is mild concentric left ventricular hypertrophy. Overa ll left ventricular systolic function is low-normal with, an EF between 50 - 55 %. The right ventricle is moderately enlarged. LA is severely dilated >40 ml/m2 The right atrium is normal in size. Interatrial and interventricular septum intact. The aortic valve is trileaflet, and appears structurally normal. No aortic stenosis or regurgitation. Mild mitral annular calcification present. Mild mitral regurgitation is present. Mild tricuspid regurgitation present. Right ventricular systolic pressure is normal at < 35 mmHg. Trace/mild (physiologic) pulmonic regurgitation. The aortic root size is normal. IVC Not well visulized. There is no pericardial effusion. CONCLUSIONS -------- 1. The left ventricular size is normal. 2. There is mild concentric left ventricular hypertrophy. 3. Overall left ventricular systolic function is low-normal with, an EF between 50 - 55 %. 4. The right ventricle is moderately enlarged. 5. LA is severely dilated >40 ml/m2 6. The aortic valve is trileaflet, and appears structurally normal. No aortic stenosis or regurgitati on. 7. Mild mitral annular calcification present. 8. Mild mitral regurgitation is present. 9. Mild tricuspid regurgitation present. 10. Trace/mild (physiologic) pulmonic regurgitation. 11. There is no pericardial effusion. [employer] SUPERVISOR: Kria Salazar RDCS
--- NOTE | 2021-03-24 12:05 | P.HPIM ---
History of Present Illness Patient is a pleasant 89-year-old male came in after a possible syncopal episode without any seizure-like activity. Patient's daughter is bedside who witnessed the episode. Patient does drink 1-2 cocktails a day. Patient did drink little bit more than usual. Patient does have history of atrial fibrillation on anticoagulation. On admission patient blood pressure was on the lower side. Patient is also on amlodipine. Patient doesn't have any bowel or bladder incontinence. Patient is not on any beta bethany at this time because of history of bradycardia in the past. Patient has mildly elevated d-dimer of 50.79 which is normal for his age. Patient was evaluated by cardiology and they recommended an echo if that's normal patient was cleared for discharge his amlodipine he is being discontinued at this time. REVIEW OF SYSTEMS: CONSTITUTIONAL: No fever, no malaise, no fatigue. HEENT: No recent visual problems or hearing problems. Denied any sore throat. CARDIOVASCULAR: No chest pain, orthopnea, PND, no palpitations. PULMONARY: No shortness of breath, no cough, no hemoptysis. GASTROINTESTINAL: No diarrhea, no nausea, no vomiting, no abdominal pain. NEUROLOGICAL: No headaches, no weakness, no numbness. HEMATOLOGICAL: Denies any bleeding or petechiae. GENITOURINARY: Denies any burning micturition, frequency, or urgency. MUSCULOSKELETAL/RHEUMATOLOGICAL: Denies any joint pain, swelling, or any muscle pain. ENDOCRINE: Denies any polyuria or polydipsia. The rest of the 14-point review of systems is negative. PHYSICAL EXAMINATION: GENERAL: The patient is alert and oriented x3, not in any acute distress. Well developed, well nourished. HEENT: Pupils are round and equally reacting to light. EOMI. No scleral icterus. No conjunctival pallor. Normocephalic, atraumatic. No pharyngeal erythema. No thyromegaly. CARDIOVASCULAR: S1 and S2 present. No murmurs, rubs, or gallops. Irregularly irregular rhythm PULMONARY: Chest is clear to auscultation, no wheezing or crackles. ABDOMEN: Soft, nontender, nondistended, normoactive bowel sounds. No palpable organomegaly. MUSCULOSKELETAL: No joint swelling or deformity. EXTREMITIES: No cyanosis, clubbing, or pedal edema. NEUROLOGICAL: Gross neurological examination did not reveal any focal deficits. SKIN: No rashes. Assessment and plan -Syncope: Possible etiology is being atrial fibrillation with rapid ventricular rate after drinking alcohol, or vasovagal event from GI upset. Patient blood pressure was found to be weak on the low side because of which were discontinued amlodipine and patient was asked to check the blood pressure twice a day at home and take it to PCP and cardiology. A low permissive hypertension testing his age. Patient's diastolic blood pressure need to be about 60. -Mildly elevated d-dimer which is normal for his age no further intervention at this time patient doesn't have any shortness of breath or chest pain at this time -Chronic atrial fibrillation patient is presently rate controlled patient will be continued on anticoagulation Patient is being discharged today in stable medical condition to home. Echo was obtained which did not show any significant abnormality. Past Medical History Past Medical History: Atrial Fibrillation, Hearing Disorder / Deafness, Memory Impairment, Osteoarthritis (OA) Additional Past Medical History / Comment(s): Left knee replaced History of Any Multi-Drug Resistant Organisms: None Reported Past Surgical History: Appendectomy, Hernia Repair Past Anesthesia/Blood Transfusion Reactions: No Reported Reaction Past Psychological History: No Psychological Hx Reported Smoking Status: Never smoker Past Alcohol Use History: Daily Past Drug Use History: None Reported - Past Family History Father Additional Family Medical History / Comment(s): Parkinson's Mother Family Medical History: Cancer Additional Family Medical History / Comment(s): Lung Cancer Medications and Allergies Home Medications Medication Instructions Recorded Confirmed Type Aspirin 81 mg PO DAILY 01/11/18 03/23/21 History Calcium Carb-Vit D 500Mg-5Mcg 1 tab PO DAILY 01/11/18 03/23/21 History [Oscal 500+D 5 Mcg (200 Iu)] Donepezil HCl [Aricept] 5 mg PO HS 01/11/18 03/23/21 History Glucosamine/Chondr Malloy A Sod [Osteo 2 tab PO DAILY 01/11/18 03/23/21 History Bi-Flex Caplet] Multivit-Min/FA/Lycopen/Lutein 1 tab PO DAILY 01/11/18 03/23/21 History [Centrum Silver Men Tablet] [place]-3 Fatty Acids/Fish Oil [Fish 2 cap PO DAILY 01/11/18 03/23/21 History Oil 1,000 mg Softgel] Simvastatin [Zocor] 10 mg PO HS 01/11/18 03/23/21 History Apixaban [Eliquis] 2.5 mg PO BID tablet 01/13/18 03/23/21 Rx Memantine [Namenda] 10 mg PO BID 03/23/21 03/23/21 History Vitamin E 400 unit PO DAILY 03/23/21 03/23/21 History Famotidine [Pepcid] 20 mg PO BID #30 tablet 03/24/21 Rx Allergies Allergy/AdvReac Type Severity Reaction Status Date / Time No Known Allergies Allergy Verified 03/23/21 22:25 Physical Exam Vitals: Vital Signs Temp Pulse Pulse Resp BP BP Pulse Ox 03/24/21 08:20 97.7 F 87 18 140/93 03/24/21 05:00 87 19 124/68 96 03/24/21 01:57 98.4 F 88 16 136/78 95 03/24/21 00:06 75 20 137/77 94 L 03/23/21 22:25 79 20 143/90 96 03/23/21 21:00 71 20 123/90 94 L 03/23/21 19:52 97.8 F 74 20 98/64 94 L Intake and Output 03/23/21 03/24/21 03/24/21 22:59 06:59 14:59 Other: Voiding Method Urinal Weight 88.451 kg Results CBC & Chem 7: 03/23/21 20:27 03/23/21 20:27 Labs: Abnormal Lab Results - Last 24 Hours (Table) 03/23/21 03/23/21 Range/Units 20:27 20:27 APTT 21.7 L (22.0-30.0) sec D-Dimer 0.79 H (<0.60) mg/L FEU Sodium 136 L (137-145) mmol/L Glucose 122 H (74-99) mg/dL
--- NOTE | 2021-03-24 12:06 | P.DS ---
Providers Date of admission: 03/23/21 23:41 Attending physician: Phong Evangelista Consults: 03/24/21 08:40 Consult Physician Routine Consulting Provider: Fab French Consult Reason/Comments: syncope Do you want consulting provider notified?: Yes Primary care physician: Christian Garcia Hospital Course: Refer to my history of present illness for further details Patient Condition at Discharge: Serious Plan - Discharge Summary New Discharge Prescriptions: New Famotidine [Pepcid] 20 mg PO BID #30 tablet Continue Donepezil HCl [Aricept] 5 mg PO HS Simvastatin [Zocor] 10 mg PO HS Aspirin 81 mg PO DAILY Calcium Carb-Vit D 500Mg-5Mcg [Oscal 500+D 5 Mcg (200 Iu)] 1 tab PO DAILY Multivit-Min/FA/Lycopen/Lutein [Centrum Silver Men Tablet] 1 tab PO DAILY Glucosamine/Chondr Malloy A Sod [Osteo Bi-Flex Caplet] 2 tab PO DAILY [place]-3 Fatty Acids/Fish Oil [Fish Oil 1,000 mg Softgel] 2 cap PO DAILY Apixaban [Eliquis] 2.5 mg PO BID tablet Memantine [Namenda] 10 mg PO BID Vitamin E 400 unit PO DAILY Discontinued amLODIPine [Norvasc] 5 mg PO HS Discharge Medication List Aspirin 81 mg PO DAILY 01/11/18 [History] Calcium Carb-Vit D 500Mg-5Mcg [Oscal 500+D 5 Mcg (200 Iu)] 1 tab PO DAILY 01/11/18 [History] Donepezil HCl [Aricept] 5 mg PO HS 01/11/18 [History] Glucosamine/Chondr Malloy A Sod [Osteo Bi-Flex Caplet] 2 tab PO DAILY 01/11/18 [History] Multivit-Min/FA/Lycopen/Lutein [Centrum Silver Men Tablet] 1 tab PO DAILY 01/11/18 [History] [place]-3 Fatty Acids/Fish Oil [Fish Oil 1,000 mg Softgel] 2 cap PO DAILY 01/11/18 [History] Simvastatin [Zocor] 10 mg PO HS 01/11/18 [History] Apixaban [Eliquis] 2.5 mg PO BID tablet 01/13/18 [Rx] Memantine [Namenda] 10 mg PO BID 03/23/21 [History] Vitamin E 400 unit PO DAILY 03/23/21 [History] Famotidine [Pepcid] 20 mg PO BID #30 tablet 03/24/21 [Rx] Follow up Appointment(s)/Referral(s): Christian Garcia MD [Primary Care Provider] - 3 Days Activity/Diet/Wound Care/Special Instructions: Follow up with primary care physician tomorrow. Return for any new, worsening, or concerning symptoms.
== END 2021-03-24 15:47 | disposition home or self-care (01) ==
LOC: EC 19:06 → 6NMEDSUR 23:41
PROVIDERS: ADMIT Hospitalist; ATTEND Hospitalist
DX: R55 Syncope and collapse (principal); F03.90 Unspecified dementia, unspecified severity, without behavioral disturbance, psychotic disturbance, mood disturbance, and anxiety; I48.20 Chronic atrial fibrillation, unspecified; I10 Essential (primary) hypertension; J98.11 Atelectasis; R10.13 Epigastric pain; H91.90 Unspecified hearing loss, unspecified ear; Z79.82 Long term (current) use of aspirin; Z79.899 Other long term (current) drug therapy; Z79.01 Long term (current) use of anticoagulants; Z90.49 Acquired absence of other specified parts of digestive tract; Z96.652 Presence of left artificial knee joint; Z82.0 Family history of epilepsy and other diseases of the nervous system; Z80.1 Family history of malignant neoplasm of trachea, bronchus and lung; Z20.822 Contact with and (suspected) exposure to COVID-19
CPT/HCPCS: 99285; 96360; 96361 ×2; 36415; 93005; 93306; 93270; 85379; 80053; 83735; 84484 ×2; 85025; 85610; 85730; 81003; 87635; 71046; 70450; G0378